=== PATIENT | female | born 1975 | race Caucasian/White ===

== ENCOUNTER 2020-05-08 13:27 | Emergency (ER) | payer OTHER, SELFPAY ==
[2020-05-08] VITALS (8 sets, daily range): BP systolic 119–134; BP diastolic 58–89; PULSE 52–86; RESP 16–24; TEMP 36.6; O2SAT 98–100; BMI 25.8
[2020-05-08 14:14] LABS: Add Manual Diff / Slide Review NO; Basophils Absolute Auto 100 /uL (0-100); Eosinophils Absolute Auto 100 /uL (0-450); Eosinophils Percent Auto 1.4 % (2-4); Hemoglobin 13.9 g/dL (12.0-16.0); Lymphocytes Absolute Auto 1900 /uL (1100-4500); Lymphocytes Percent Auto 31.9 % (25-40); Mean Corpuscular HGB Conc 34.8 % (30-36); Mean Corpuscular Hemoglobin 35.6 PG (26-34); Mean Corpuscular Volume 102.2 fL (80-100); Monocytes Absolute Auto 500 /uL (0-900); Monocytes Percent Auto 8.3 % (3-14); Neutrophils Absolute Auto 3400 /uL (1500-7000); Neutrophils Percent Auto 57.4 % (50-75); Platelet Count 283 X10^3/uL (150-400); Red Blood Cell Count 3.91 X10^6/uL (4.0-5.2); Red Cell Distribution Width 12.7 % (11.6-14.8)
[2020-05-08 14:22] LABS: INR 0.9 (0.9-1.3); Prothrombin Time 10.3 SECONDS (10.1-12.7)
[2020-05-08 14:25] LABS: PTT Partial Thromboplastin Tim 31 SECONDS (26.4-36.2)
[2020-05-08] MEDS: PANTOPRAZOLE 40 MG VIAL IV (14:29)
[2020-05-08] MEDS: ONDANSETRON 4 MG/2 ML INJ IV ×2 (14:29→21:03)
[2020-05-08] MEDS: SODIUM CHLORIDE 0.9% 1,000 ML 1000 ML IV ×4 (14:29→20:00)
[2020-05-08 14:31] LABS: Lactate (Lactic Acid) 2.5 mmol/L (0.7-2.1)
[2020-05-08 14:32] LABS: Alanine Aminotransferase 24 IU/L (<35); Albumin 4.5 g/dL (3.5-5.0); Albumin Globulin Ratio 1.5 (1.0-2.8); Alkaline Phosphatase 81 U/L (38-126); Amylase 97 U/L (30-110); Aspartate Aminotransferase 45 IU/L (14-36); BUN Creatinine Ratio 17.3 (6-22); Bilirubin Total 0.6 mg/dL (0.2-1.3); Blood Urea Nitrogen 9 mg/dL (7-17); Calcium 9.3 mg/dL (8.4-10.2); Carbon Dioxide 25 mmol/L (22-32); Chloride 100 mmol/L (98-107); Estimated Glomerular Filt Rate > 60.0 mL/min (>60); Glucose 109 mg/dL (70-100); HEMOLYSIS 19 (0-50); Lipase 92 U/L (23-300); Potassium 3.4 mmol/L (3.4-5.1); Sodium 135 mmol/L (137-145); Total Protein 7.5 g/dL (6.3-8.2)
[2020-05-08 15:06] LABS: Pregnancy Test Serum,Qual Negative (Negative)
--- NOTE | 2020-05-08 15:10 | DI.CT.S_ITS ---
PROCEDURE: CT ABDOMEN PELVIS W CON INDICATIONS: abd pain, post op gastric bypass TECHNIQUE: After the administration of oral and intravenous contrast, 5 mm thick sections acquired from the diaphragms to the symphysis. 5 mm thick coronal and sagittal reformats were performed. For radiation dose reduction, the following was used: automated exposure control, adjustment of mA and/or kV according to patient size. COMPARISON: [facility], CT, CT ABDOMEN PELVIS WITH CONTRAST, 11/21/2019, 15:10. FINDINGS: Image quality: Diagnostic. ABDOMEN: Lung bases: Lung bases are clear. Heart size is normal. Solid organs: The liver is borderline enlarged at 19.4 cm in craniocaudal dimension. The liver is hypodense when compared to the spleen. The patient has had a prior cholecystectomy without significant biliary dilatation. The spleen, adrenals, and pancreas are within normal limits. Both kidneys are normal in size. There is no hydronephrosis. Peritoneum and bowel: Postsurgical changes of the stomach and small bowel are compatible with a previous gastric bypass procedure. Small bowel loops are nondilated. Air and stool are identified throughout the colon. The appendix is well-visualized and normal. No free fluid or loculated fluid collections appreciated within the abdomen. Nodes and vessels: No retroperitoneal or mesenteric adenopathy. However, multiple small mesenteric lymph nodes are identified. Aorta and inferior vena cava are normal in caliber. Bones: No acute fracture or suspicious osseous lesion is identified. Mild to moderate degenerative changes of the spine are present. PELVIS: Genitourinary: Bladder wall thickness is normal. The uterus and ovaries are not enlarged, but are not adequately characterized on CT. Arcuate morphology of the uterus appears to be present. Tubal ligation is present. Miscellaneous: No inguinal hernias or adenopathy. There may be a trace amount of free fluid within the pelvis, likely physiologic. There is no loculated fluid collection. Bones: No suspicious bony lesions. No acute pelvic fractures are identified. IMPRESSION: 1. No definite acute abnormality within the abdomen or pelvis. 2. No bowel obstruction. 3. Multiple nonspecific subcentimeter mesenteric lymph nodes may be within normal limits. Mesenteritis cannot be completely excluded and clinical correlation is advised. 4. Mild hepatic steatosis is suspected. 5. Postoperative changes related to previous gastric bypass surgery. Dictated by: Hugo Carrington M.D. on 05/08/2020 at 15:24 Approved by: Hugo Carrington M.D. on 05/08/2020 at 15:28
[2020-05-08] MEDS: MORPHINE 4 MG/ML INJ IV (15:37)
[2020-05-08] MEDS: ONDANSETRON 4 MG/2 ML INJ (15:43)
[2020-05-08 16:22] LABS: Reflexed Lactate in 2 Hours Y
[2020-05-08] MEDS: LORazepam 2 MG/ML INJ 1 MG IV ×2 (16:29→18:58)
[2020-05-08] MEDS: MAG HYDROX/ALUMINUM/SIMETH SUS 20 ML, LIDOCAINE VISCOUS 2% 15 ML PO ×2 (17:15→21:03)
[2020-05-08] MEDS: SUCRALFATE 1 GM/10 ML ORAL SUSP PO (17:15)
--- NOTE | 2020-05-08 17:53 | ED.ABDPAIN ---
HPI - Abdominal Pain <[facility] - Last Filed: 05/08/20 21:58> General Chief Complaint: Abdominal Pain Stated Complaint: sharp abd pain, shaking Time Seen by Provider: 05/08/20 14:05 Source: patient Mode of arrival: Wheelchair Limitations: no limitations History of Present Illness HPI narrative: The patient is a 44-year-old female former smoker who presents with a chief complaint of abdominal pain. Pain started this morning. She has history of a gastric bypass surgery, which was a Agnieszka-en-Y done in [place]. She has also had a cholecystectomy in the past. Denies any fever but does complain of anxiety. She has had nausea but no vomiting normal stools last bowel movement yesterday. Denies any dysuria urgency or frequency. She has not had any Protonix. Denies any chest pain or shortness of breath. She denies any cough or congestion. Related Data Previous Rx's Medication Instructions Recorded omeprazole 40 mg PO DAILY #20 cap 05/08/20 ondansetron 4 mg PO Q6H PRN #20 tab 05/08/20 sucralfate [Carafate] 10 ml PO QACHS 10 Days #400 ml 05/08/20 Allergies Allergy/AdvReac Type Severity Reaction Status Date / Time NSAIDS (Non-Steroidal Allergy Verified 05/08/20 13:39 Anti-Inflamma Review of Systems <[facility] - Last Filed: 05/08/20 21:58> Review of Systems Narrative: GENERAL: Denies chills, fatigue, malaise, fever, sweats. HEENT: Denies sinus pain, ear pain, sore throat, difficulty swallowing, dizziness. RESPIRATORY: Denies dyspnea, cough, wheezing, hemoptysis, sputum. CARDIOVASCULAR: Denies chest pain, palpitations, orthopnea, edema, GASTROINTESTINAL: See HPI : Denies dysuria, frequency, incontinence, hematuria, urinary retention. MUSCULOSKELETAL: denies weakness, joint pain, or bony pain SKIN: Denies rash, skin lesions, or other NEUROLOGIC: Denies weakness, headache, numbness, change in speech, confusion, seizures, incoordination. PSYCHIATRIC: No concerning psychosocial issues. 12 point review of systems is negative except for those stated above Patient History <[facility] - Last Filed: 05/08/20 21:58> Surgical History (Updated 05/08/20 @ 21:25 by JANIYA Aldridge) History of cholecystectomy (Acute) History of endometrial ablation (Acute) History of Agnieszka-en-Y gastric bypass (Acute) History of tubal ligation (Acute) Social History Smoking Status: Former smoker Smoking Status: Former smoker alcohol intake frequency: 3 or more drinks per day Alcohol type: wine Substance Use Type: marijuana Exam <JANIYA Aldridge - Last Filed: 05/08/20 21:58> Narrative Exam Narrative: GENERAL: This is a well-nourished, well-developed patient, appears uncomfortable HEAD: Atraumatic. Normocephalic. No temporal or scalp tenderness. EYES: Pupils equal round and reactive. Extraocular motions intact. No scleral icterus. No injection or drainage. ENT: Nose without bleeding, purulent drainage or septal hematoma. Throat without erythema, tonsillar hypertrophy or exudate. Uvula midline. Airway patent. NECK: Trachea midline. No JVD or lymphadenopathy. Supple, nontender, no meningeal signs. CARDIOVASCULAR: Regular rate and rhythm RESPIRATORY: Clear to auscultation. Breath sounds equal bilaterally. No wheezes, rales, or rhonchi. No cough. No increased respiratory effort. No accessory muscle use GASTROINTESTINAL: Abdomen soft, diffusely tender in the epigastric area, nondistended. No hepato-splenomegaly, or palpable masses. No guarding. Active bowel sounds all 4 quadrants EXTREMITIES: No clubbing, cyanosis, or edema. No joint tenderness, effusion, or edema noted. BACK: Nontender without deformity or crepitance. No flank tenderness. NEURO: AOx3. SKIN: No rash or erythema on visible skin Initial Vital Signs Initial Vital Signs: Vital Signs Temperature 97.9 F 05/08/20 13:36 Pulse Rate 74 05/08/20 13:36 Respiratory Rate 24 05/08/20 13:36 Blood Pressure 119/58 L 05/08/20 13:36 Pulse Oximetry 100 05/08/20 13:36 <Bony Landa DO - Last Filed: 05/08/20 22:19> Initial Vital Signs Initial Vital Signs: Vital Signs Temperature 97.9 F 05/08/20 13:36 Pulse Rate 74 05/08/20 13:36 Respiratory Rate 24 05/08/20 13:36 Blood Pressure 119/58 L 05/08/20 13:36 Pulse Oximetry 100 05/08/20 13:36 Scores <JANIYA Aldridge - Last Filed: 05/08/20 21:58> GCS Genoveva coma scale eye opening: Spontaneous [place] coma scale verbal response: Orientated Genoveva coma scale motor response: Obey commands [place] coma scale total score: 15 Course <JANIYA Aldridge - Last Filed: 05/08/20 21:58> Orders Ordered: ED Orders 05/08/20 13:39 EKG-12 Lead Stat 05/08/20 14:05 Amylase Stat Complete Blood Count AUTO DIFF Stat Comprehensive Metabolic Panel Stat Lactate (Lactic Acid) Stat Lipase Stat Partial Thromboplastin Time Stat Test Serum,Qual Stat Prothrombin Time INR Stat 05/08/20 15:10 CT abdomen pelvis w con Stat 05/08/20 20:56 Lactate (Lactic Acid) Stat Discontinued Medications Acetaminophen/Codeine Phosphate (Tylenol #3 Prepack) 1 bottle MISC SEEINSTR ONE Stop: 05/08/20 21:42 Last Admin: 05/08/20 21:56 Dose: 1 bottle Documented by: REJI Al Hydrox/Mg Hydrox/Simethicone 20 ml/ Lidocaine HCl 15 ml 0 ml PO NOW ONE Stop: 05/08/20 16:41 Last Admin: 05/08/20 17:15 Dose: 35 ml Documented by: JOHN PAUL Al Hydrox/Mg Hydrox/Simethicone 20 ml/ Lidocaine HCl 15 ml 0 ml PO NOW ONE Stop: 05/08/20 21:01 Last Admin: 05/08/20 21:03 Dose: 35 ml Documented by: MMCFARL Diphenhydramine HCl (Benadryl) 50 mg IV NOW ONE Stop: 05/08/20 19:04 Last Admin: 05/08/20 20:39 Dose: Not Given Documented by: MMCFARL Diphenhydramine HCl (Benadryl) 25 mg IV NOW ONE Stop: 05/08/20 19:05 Last Admin: 05/08/20 19:32 Dose: 25 mg Documented by: MMCFARL Sodium Chloride (Normal Saline 0.9%) 1,000 mls @ 1,000 mls/hr IV BOLUS ONE Stop: 05/08/20 15:16 Last Infusion: 05/08/20 15:30 Dose: 0 mls/hr Documented by: JOHN PAUL Admin: 05/08/20 14:29 Dose: 1,000 mls/hr Documented by: JOHN PAUL Sodium Chloride (Normal Saline 0.9%) 1,000 mls @ 1,000 mls/hr IV BOLUS ONE Stop: 05/08/20 15:42 Last Infusion: 05/08/20 17:49 Dose: 0 mls/hr Documented by: Admin: 05/08/20 16:29 Dose: 1,000 mls/hr Documented by: JOHN PAUL Sodium Chloride (Normal Saline 0.9%) 1,000 mls @ 1,000 mls/hr IV BOLUS ONE Stop: 05/08/20 19:37 Last Infusion: 05/08/20 20:00 Dose: 0 mls/hr Documented by: Admin: 05/08/20 18:54 Dose: 1,000 mls/hr Documented by: JOHN PAUL Sodium Chloride (Normal Saline 0.9%) 1,000 mls @ 1,000 mls/hr IV BOLUS ONE Stop: 05/08/20 19:38 Last Infusion: 05/08/20 20:57 Dose: 0 mls/hr Documented by: Admin: 05/08/20 20:00 Dose: 1,000 mls/hr Documented by: REJI Thiamine HCl 200 mg/ Sodium (Chloride) 52 mls @ 208 mls/hr IV NOW ONE Stop: 05/08/20 21:44 Last Admin: 05/08/20 21:55 Dose: 208 mls/hr Documented by: REJI Lorazepam (Ativan) 1 mg IV NOW ONE Stop: 05/08/20 16:07 Last Admin: 05/08/20 16:29 Dose: 1 mg Documented by: JOHN PAUL Lorazepam (Ativan) 1 mg IV NOW ONE Stop: 05/08/20 18:39 Last Admin: 05/08/20 18:58 Dose: 1 mg Documented by: JOHN PAUL Morphine Sulfate (Morphine) 4 mg IV NOW ONE Stop: 05/08/20 15:31 Last Admin: 05/08/20 15:37 Dose: 4 mg Documented by: POORNIMA Ondansetron HCl (Zofran) 4 mg IV NOW ONE Stop: 05/08/20 14:18 Last Admin: 05/08/20 14:29 Dose: 4 mg Documented by: JOHN PAUL Ondansetron HCl (Zofran) 4 mg IV NOW ONE Stop: 05/08/20 21:00 Last Admin: 05/08/20 21:03 Dose: 4 mg Documented by: REJI Ondansetron HCl (Zofran Odt Prepack) 1 bottle MISC SEEINSTR ONE Stop: 05/08/20 21:42 Last Admin: 05/08/20 21:56 Dose: 1 bottle Documented by: REJI Pantoprazole Sodium (Protonix) 40 mg IV NOW ONE Stop: 05/08/20 14:18 Last Admin: 05/08/20 14:29 Dose: 40 mg Documented by: JOHN PAUL Sucralfate (Carafate) 1 gm PO NOW ONE Stop: 05/08/20 16:42 Last Admin: 05/08/20 17:15 Dose: 1 gm Documented by: JOHN PAUL Vital Signs Vital signs: Vital Signs - 8 hr 05/08/20 16:10 05/08/20 16:39 05/08/20 18:23 Pulse Rate 57 L 52 L 70 Respiratory Rate 17 18 17 Blood Pressure [Left Arm] 134/81 124/89 123/58 L Pulse Oximetry 100 100 98 05/08/20 19:32 05/08/20 20:30 05/08/20 21:00 Pulse Rate 86 65 70 Respiratory Rate 17 17 Blood Pressure [Left Arm] 126/62 126/63 126/75 Pulse Oximetry 99 100 99 <Bony Landa DO - Last Filed: 05/08/20 22:19> Orders Ordered: ED Orders 05/08/20 13:39 EKG-12 Lead Stat 05/08/20 14:05 Amylase Stat Complete Blood Count AUTO DIFF Stat Comprehensive Metabolic Panel Stat Lactate (Lactic Acid) Stat Lipase Stat Partial Thromboplastin Time Stat Test Serum,Qual Stat Prothrombin Time INR Stat 05/08/20 15:10 CT abdomen pelvis w con Stat 05/08/20 20:56 Lactate (Lactic Acid) Stat Discontinued Medications Acetaminophen/Codeine Phosphate (Tylenol #3 Prepack) 1 bottle MISC SEEINSTR ONE Stop: 05/08/20 21:42 Last Admin: 05/08/20 21:56 Dose: 1 bottle Documented by: MMCFARL Al Hydrox/Mg Hydrox/Simethicone 20 ml/ Lidocaine HCl 15 ml 0 ml PO NOW ONE Stop: 05/08/20 16:41 Last Admin: 05/08/20 17:15 Dose: 35 ml Documented by: JOHN PAUL Blanc Hydrox/Mg Hydrox/Simethicone 20 ml/ Lidocaine HCl 15 ml 0 ml PO NOW ONE Stop: 05/08/20 21:01 Last Admin: 05/08/20 21:03 Dose: 35 ml Documented by: REJI Diphenhydramine HCl (Benadryl) 50 mg IV NOW ONE Stop: 05/08/20 19:04 Last Admin: 05/08/20 20:39 Dose: Not Given Documented by: RAMÍREZFAROllie Diphenhydramine HCl (Benadryl) 25 mg IV NOW ONE Stop: 05/08/20 19:05 Last Admin: 05/08/20 19:32 Dose: 25 mg Documented by: REJI Sodium Chloride (Normal Saline 0.9%) 1,000 mls @ 1,000 mls/hr IV BOLUS ONE Stop: 05/08/20 15:16 Last Infusion: 05/08/20 15:30 Dose: 0 mls/hr Documented by: JOHN PAUL Admin: 05/08/20 14:29 Dose: 1,000 mls/hr Documented by: JOHN PAUL Sodium Chloride (Normal Saline 0.9%) 1,000 mls @ 1,000 mls/hr IV BOLUS ONE Stop: 05/08/20 15:42 Last Infusion: 05/08/20 17:49 Dose: 0 mls/hr Documented by: Admin: 05/08/20 16:29 Dose: 1,000 mls/hr Documented by: JOHN PAUL Sodium Chloride (Normal Saline 0.9%) 1,000 mls @ 1,000 mls/hr IV BOLUS ONE Stop: 05/08/20 19:37 Last Infusion: 05/08/20 20:00 Dose: 0 mls/hr Documented by: Admin: 05/08/20 18:54 Dose: 1,000 mls/hr Documented by: JOHN PAUL Sodium Chloride (Normal Saline 0.9%) 1,000 mls @ 1,000 mls/hr IV BOLUS ONE Stop: 05/08/20 19:38 Last Infusion: 05/08/20 20:57 Dose: 0 mls/hr Documented by: Admin: 05/08/20 20:00 Dose: 1,000 mls/hr Documented by: REJI Thiamine HCl 200 mg/ Sodium (Chloride) 52 mls @ 208 mls/hr IV NOW ONE Stop: 05/08/20 21:44 Last Admin: 05/08/20 21:55 Dose: 208 mls/hr Documented by: REJI Lorazepam (Ativan) 1 mg IV NOW ONE Stop: 05/08/20 16:07 Last Admin: 05/08/20 16:29 Dose: 1 mg Documented by: JOHN PAUL Lorazepam (Ativan) 1 mg IV NOW ONE Stop: 05/08/20 18:39 Last Admin: 05/08/20 18:58 Dose: 1 mg Documented by: JOHN PAUL Morphine Sulfate (Morphine) 4 mg IV NOW ONE Stop: 05/08/20 15:31 Last Admin: 05/08/20 15:37 Dose: 4 mg Documented by: POORNIMA Ondansetron HCl (Zofran) 4 mg IV NOW ONE Stop: 05/08/20 14:18 Last Admin: 05/08/20 14:29 Dose: 4 mg Documented by: JOHN PAUL Ondansetron HCl (Zofran) 4 mg IV NOW ONE Stop: 05/08/20 21:00 Last Admin: 05/08/20 21:03 Dose: 4 mg Documented by: REJI Ondansetron HCl (Zofran Odt Prepack) 1 bottle [facility] SEEINSTR ONE Stop: 05/08/20 21:42 Last Admin: 05/08/20 21:56 Dose: 1 bottle Documented by: REJI Pantoprazole Sodium (Protonix) 40 mg IV NOW ONE Stop: 05/08/20 14:18 Last Admin: 05/08/20 14:29 Dose: 40 mg Documented by: JOHN PAUL Sucralfate (Carafate) 1 gm PO NOW ONE Stop: 05/08/20 16:42 Last Admin: 05/08/20 17:15 Dose: 1 gm Documented by: JOHN PAUL Vital Signs Vital signs: Vital Signs - 8 hr 05/08/20 16:10 05/08/20 16:39 05/08/20 18:23 Pulse Rate 57 L 52 L 70 Respiratory Rate 17 18 17 Blood Pressure [Left Arm] 134/81 124/89 123/58 L Pulse Oximetry 100 100 98 05/08/20 19:32 05/08/20 20:30 05/08/20 21:00 Pulse Rate 86 65 70 Respiratory Rate 17 17 Blood Pressure [Left Arm] 126/62 126/63 126/75 Pulse Oximetry 99 100 99 MDM - Abdominal Pain <Marcela Carcamomer, [facility] - Last Filed: 05/08/20 21:58> Lab Data Result diagrams: 05/08/20 14:05 05/08/20 14:05 Labs: Lab Results 05/08/20 05/08/20 05/08/20 Range/Units 14:05 14:05 14:05 WBC 6.0 (4.5-11.0) X10^3/uL RBC 3.91 L (4.0-5.2) X10^6/uL Hgb 13.9 (12.0-16.0) g/dL Hct 40.0 (36-46) % MCV 102.2 H (80-100) fL MCH 35.6 H (26-34) PG MCHC 34.8 (30-36) % RDW 12.7 (11.6-14.8) % Plt Count 283 (150-400) X10^3/uL Neut % (Auto) 57.4 (50-75) % Lymph % (Auto) 31.9 (25-40) % [place] % (Auto) 8.3 (3-14) % Eos % (Auto) 1.4 L (2-4) % Baso % (Auto) 1.0 (0-2) % Neut # (Auto) 3400 (3058-4504) /uL Lymph # (Auto) 1900 (2913-6467) /uL [place] # (Auto) 500 (0-900) /uL Eos # (Auto) 100 (0-450) /uL Baso # (Auto) 100 (0-100) /uL PT 10.3 (10.1-12.7) SECONDS INR 0.9 (0.9-1.3) APTT 31 (26.4-36.2) SECONDS Sodium 135 L (137-145) mmol/L Potassium 3.4 (3.4-5.1) mmol/L Chloride 100 (98-107) mmol/L Carbon Dioxide 25 (22-32) mmol/L BUN 9 (7-17) mg/dL Creatinine 0.52 (0.52-1.04) mg/dL Estimated GFR > 60.0 (>60) mL/min BUN/Creatinine Ratio 17.3 (6-22) Glucose 109 H (70-100) mg/dL Lactate (0.7-2.1) mmol/L Calcium 9.3 (8.4-10.2) mg/dL Total Bilirubin 0.6 (0.2-1.3) mg/dL AST 45 H (14-36) IU/L ALT 24 (<35) IU/L Alkaline Phosphatase 81 (38-126) U/L Total Protein 7.5 (6.3-8.2) g/dL Albumin 4.5 (3.5-5.0) g/dL Globulin 3.0 (1.7-4.1) g/dL Albumin/Globulin Ratio 1.5 (1.0-2.8) Amylase (30-110) U/L Lipase 92 (23-300) U/L Serum , Qual (Negative) 05/08/20 05/08/20 05/08/20 Range/Units 14:05 14:05 14:05 WBC (4.5-11.0) X10^3/uL RBC (4.0-5.2) X10^6/uL Hgb (12.0-16.0) g/dL Hct (36-46) % MCV (80-100) fL MCH (26-34) PG MCHC (30-36) % RDW (11.6-14.8) % Plt Count (150-400) X10^3/uL Neut % (Auto) (50-75) % Lymph % (Auto) (25-40) % [place] % (Auto) (3-14) % Eos % (Auto) (2-4) % Baso % (Auto) (0-2) % Neut # (Auto) (6700-6363) /uL Lymph # (Auto) (3255-9927) /uL [place] # (Auto) (0-900) /uL Eos # (Auto) (0-450) /uL Baso # (Auto) (0-100) /uL PT (10.1-12.7) SECONDS INR (0.9-1.3) APTT (26.4-36.2) SECONDS Sodium (137-145) mmol/L Potassium (3.4-5.1) mmol/L Chloride (98-107) mmol/L Carbon Dioxide (22-32) mmol/L BUN (7-17) mg/dL Creatinine (0.52-1.04) mg/dL Estimated GFR (>60) mL/min BUN/Creatinine Ratio (6-22) Glucose (70-100) mg/dL Lactate 2.5 H (0.7-2.1) mmol/L Calcium (8.4-10.2) mg/dL Total Bilirubin (0.2-1.3) mg/dL AST (14-36) IU/L ALT (<35) IU/L Alkaline Phosphatase (38-126) U/L Total Protein (6.3-8.2) g/dL Albumin (3.5-5.0) g/dL Globulin (1.7-4.1) g/dL Albumin/Globulin Ratio (1.0-2.8) Amylase 97 (30-110) U/L Lipase (23-300) U/L Serum , Qual Negative (Negative) 05/08/20 05/08/20 Range/Units 17:44 20:56 WBC (4.5-11.0) X10^3/uL RBC (4.0-5.2) X10^6/uL Hgb (12.0-16.0) g/dL Hct (36-46) % MCV (80-100) fL MCH (26-34) PG MCHC (30-36) % RDW (11.6-14.8) % Plt Count (150-400) X10^3/uL Neut % (Auto) (50-75) % Lymph % (Auto) (25-40) % [place] % (Auto) (3-14) % Eos % (Auto) (2-4) % Baso % (Auto) (0-2) % Neut # (Auto) (2482-0490) /uL Lymph # (Auto) (4531-6371) /uL [place] # (Auto) (0-900) /uL Eos # (Auto) (0-450) /uL Baso # (Auto) (0-100) /uL PT (10.1-12.7) SECONDS INR (0.9-1.3) APTT (26.4-36.2) SECONDS Sodium (137-145) mmol/L Potassium (3.4-5.1) mmol/L Chloride (98-107) mmol/L Carbon Dioxide (22-32) mmol/L BUN (7-17) mg/dL Creatinine (0.52-1.04) mg/dL Estimated GFR (>60) mL/min BUN/Creatinine Ratio (6-22) Glucose (70-100) mg/dL Lactate 2.8 H 2.6 H (0.7-2.1) mmol/L Calcium (8.4-10.2) mg/dL Total Bilirubin (0.2-1.3) mg/dL AST (14-36) IU/L ALT (<35) IU/L Alkaline Phosphatase (38-126) U/L Total Protein (6.3-8.2) g/dL Albumin (3.5-5.0) g/dL Globulin (1.7-4.1) g/dL Albumin/Globulin Ratio (1.0-2.8) Amylase (30-110) U/L Lipase (23-300) U/L Serum , Qual (Negative) Point of care testing: Point of Care Testing Test Results Negative Urine Dip Bedside Urine Glucose Negative Bedside Urine Bilirubin ++ 2 Bedside Urine Ketone +++ 80 Urine Specific [place] 1.010 Bedside Urine Occult Blood - Negative Bedside Urine pH 8.5 Bedside Urine Protein + 30 Bedside Urine Urobilinogen +/- 1mg Bedside Urine Nitrite - Negative Bedside Urine Leukocytes - Negative Esterase Imaging Data CT scan - abdomen/pelvis: Radiologist's Impression: Count includes the [facility] [place] [id number] Scan Report Signed Patient: Rita Hernandez [facility]#: [id number] : 1975Acct:[id number] Age/Sex: 44 / FDate of Service: 05/08/20 Loc: ED Accession Number: [id number] Procedure: CT abdomen pelvis w con Ordering Provider: Marcela Shelley [facility]- PROCEDURE: CT ABDOMEN PELVIS W CON INDICATIONS: abd pain, post op gastric bypass TECHNIQUE: After the administration of oral and intravenous contrast, 5 mm thick sections acquired from the diaphragms to the symphysis. 5 mm thick coronal and sagittal reformats were performed. For radiation dose reduction, the following was used: automated exposure control, adjustment of mA and/or kV according to patient size. COMPARISON: [facility], CT, CT ABDOMEN PELVIS WITH CONTRAST, 11/21/2019, 15:10. FINDINGS: Image quality: Diagnostic. ABDOMEN: Lung bases: Lung bases are clear. Heart size is normal. Solid organs: The liver is borderline enlarged at 19.4 cm in craniocaudal dimension. The liver is hypodense when compared to the spleen. The patient has had a prior cholecystectomy without significant biliary dilatation. The spleen, adrenals, and pancreas are within normal limits. Both kidneys are normal in size. There is no hydronephrosis. Peritoneum and bowel: Postsurgical changes of the stomach and small bowel are compatible with a previous gastric bypass procedure. Small bowel loops are nondilated. Air and stool are identified throughout the colon. The appendix is well-visualized and normal. No free fluid or loculated fluid collections appreciated within the abdomen. Nodes and vessels: No retroperitoneal or mesenteric adenopathy. However, multiple small mesenteric lymph nodes are identified. Aorta and inferior vena cava are normal in caliber. Bones: No acute fracture or suspicious osseous lesion is identified. Mild to moderate degenerative changes of the spine are present. PELVIS: Genitourinary: Bladder wall thickness is normal. The uterus and ovaries are not enlarged, but are not adequately characterized on CT. Arcuate morphology of the uterus appears to be present. Tubal ligation is present. Miscellaneous: No inguinal hernias or adenopathy. There may be a trace amount of free fluid within the pelvis, likely physiologic. There is no loculated fluid collection. Bones: No suspicious bony lesions. No acute pelvic fractures are identified. IMPRESSION: 1. No definite acute abnormality within the abdomen or pelvis. 2. No bowel obstruction. 3. Multiple nonspecific subcentimeter mesenteric lymph nodes may be within normal limits. Mesenteritis cannot be completely excluded and clinical correlation is advised. 4. Mild hepatic steatosis is suspected. 5. Postoperative changes related to previous gastric bypass surgery. Dictated by: Hugo Carrington M.D. on 05/08/2020 at 15:24 Approved by: Hugo Carrington M.D. on 05/08/2020 at 15:28 ECG Data Attestation: I personally reviewed and interpreted this ECG as follows: Interpretation: Sinus rhythm. Ventricular rate 76. P.r. interval 148. QRS 72 MDM Narrative Medical decision making narrative: The patient is a 44-year-old female with history of cholecystectomy as well as Agnieszka-en-Y gastric bypass who presents with a chief complaint of epigastric pain, nausea and vomiting. She presents hyperventilating, incredibly anxious and shaking. However she is hemodynamically stable, normotensive, afebrile. She has no leukocytosis on her labs, does have an initial lactate of 2.5. She was given IV fluids, Zofran, morphine. Unfortunately the morphine made her more anxious and shaky. Thus she was given Ativan. Her CT scan has no acute findings though raises the possibility of mesenteritis. Her repeat lactate was 2.8 and her mucous membranes remain dry. I spoke with Dr Santos and the patient was given more IV fluids and another dose of Ativan. She received 2 more L of fluid, and repeat lactate was 2.6. However the patient looks and appears well, is taking p.o. fluids, is afebrile in the emergency department. Dr. Edwards was paged for surgical consultation discussed repeat lactates. As per Dr. Edwards, patient would not gain anything at this point from coming in observation status any recommends very close follow-up with her PCP as well as coming back to the emergency department if she gets worse. Patient was also given dose of IV thiamine as per Dr Edwards's instructions. CO2 on labs is 25, patient is not acidotic overall labs are within normal limits. Overall patient feels much improved throughout her stay in the emergency department, is able to tolerate p.o. fluids well, remains normotensive not tachycardic and afebrile. On re-evaluation at 9:30 p.m., patient has no guarding and no acute abdomen. I discussed at length the importance of follow-up with primary care provider in the next day or 2 in gave her work note accordingly. [facility], Protonix, carafate. Patient has no questions or concerns upon discharge and states understanding of return precautions as well as follow-up care. <Bony Landa, - Last Filed: 05/08/20 22:19> Lab Data Labs: Lab Results 05/08/20 05/08/20 05/08/20 Range/Units 14:05 14:05 14:05 WBC 6.0 (4.5-11.0) X10^3/uL RBC 3.91 L (4.0-5.2) X10^6/uL Hgb 13.9 (12.0-16.0) g/dL Hct 40.0 (36-46) % MCV 102.2 H (80-100) fL MCH 35.6 H (26-34) PG MCHC 34.8 (30-36) % RDW 12.7 (11.6-14.8) % Plt Count 283 (150-400) X10^3/uL Neut % (Auto) 57.4 (50-75) % Lymph % (Auto) 31.9 (25-40) % [place] % (Auto) 8.3 (3-14) % Eos % (Auto) 1.4 L (2-4) % Baso % (Auto) 1.0 (0-2) % Neut # (Auto) 3400 (8998-2265) /uL Lymph # (Auto) 1900 (3763-8483) /uL [place] # (Auto) 500 (0-900) /uL Eos # (Auto) 100 (0-450) /uL Baso # (Auto) 100 (0-100) /uL PT 10.3 (10.1-12.7) SECONDS INR 0.9 (0.9-1.3) APTT 31 (26.4-36.2) SECONDS Sodium 135 L (137-145) mmol/L Potassium 3.4 (3.4-5.1) mmol/L Chloride 100 (98-107) mmol/L Carbon Dioxide 25 (22-32) mmol/L BUN 9 (7-17) mg/dL Creatinine 0.52 (0.52-1.04) mg/dL Estimated GFR > 60.0 (>60) mL/min BUN/Creatinine Ratio 17.3 (6-22) Glucose 109 H (70-100) mg/dL Lactate (0.7-2.1) mmol/L Calcium 9.3 (8.4-10.2) mg/dL Total Bilirubin 0.6 (0.2-1.3) mg/dL AST 45 H (14-36) IU/L ALT 24 (<35) IU/L Alkaline Phosphatase 81 (38-126) U/L Total Protein 7.5 (6.3-8.2) g/dL Albumin 4.5 (3.5-5.0) g/dL Globulin 3.0 (1.7-4.1) g/dL Albumin/Globulin Ratio 1.5 (1.0-2.8) Amylase (30-110) U/L Lipase 92 (23-300) U/L Serum , Qual (Negative) 05/08/20 05/08/20 05/08/20 Range/Units 14:05 14:05 14:05 WBC (4.5-11.0) X10^3/uL RBC (4.0-5.2) X10^6/uL Hgb (12.0-16.0) g/dL Hct (36-46) % MCV (80-100) fL MCH (26-34) PG MCHC (30-36) % RDW (11.6-14.8) % Plt Count (150-400) X10^3/uL Neut % (Auto) (50-75) % Lymph % (Auto) (25-40) % [place] % (Auto) (3-14) % Eos % (Auto) (2-4) % Baso % (Auto) (0-2) % Neut # (Auto) (1212-2941) /uL Lymph # (Auto) (1139-9542) /uL [place] # (Auto) (0-900) /uL Eos # (Auto) (0-450) /uL Baso # (Auto) (0-100) /uL PT (10.1-12.7) SECONDS INR (0.9-1.3) APTT (26.4-36.2) SECONDS Sodium (137-145) mmol/L Potassium (3.4-5.1) mmol/L Chloride (98-107) mmol/L Carbon Dioxide (22-32) mmol/L BUN (7-17) mg/dL Creatinine (0.52-1.04) mg/dL Estimated GFR (>60) mL/min BUN/Creatinine Ratio (6-22) Glucose (70-100) mg/dL Lactate 2.5 H (0.7-2.1) mmol/L Calcium (8.4-10.2) mg/dL Total Bilirubin (0.2-1.3) mg/dL AST (14-36) IU/L ALT (<35) IU/L Alkaline Phosphatase (38-126) U/L Total Protein (6.3-8.2) g/dL Albumin (3.5-5.0) g/dL Globulin (1.7-4.1) g/dL Albumin/Globulin Ratio (1.0-2.8) Amylase 97 (30-110) U/L Lipase (23-300) U/L Serum , Qual Negative (Negative) 05/08/20 05/08/20 Range/Units 17:44 20:56 WBC (4.5-11.0) X10^3/uL RBC (4.0-5.2) X10^6/uL Hgb (12.0-16.0) g/dL Hct (36-46) % MCV (80-100) fL MCH (26-34) PG MCHC (30-36) % RDW (11.6-14.8) % Plt Count (150-400) X10^3/uL Neut % (Auto) (50-75) % Lymph % (Auto) (25-40) % [place] % (Auto) (3-14) % Eos % (Auto) (2-4) % Baso % (Auto) (0-2) % Neut # (Auto) (5928-0052) /uL Lymph # (Auto) (5439-6980) /uL [place] # (Auto) (0-900) /uL Eos # (Auto) (0-450) /uL Baso # (Auto) (0-100) /uL PT (10.1-12.7) SECONDS INR (0.9-1.3) APTT (26.4-36.2) SECONDS Sodium (137-145) mmol/L Potassium (3.4-5.1) mmol/L Chloride (98-107) mmol/L Carbon Dioxide (22-32) mmol/L BUN (7-17) mg/dL Creatinine (0.52-1.04) mg/dL Estimated GFR (>60) mL/min BUN/Creatinine Ratio (6-22) Glucose (70-100) mg/dL Lactate 2.8 H 2.6 H (0.7-2.1) mmol/L Calcium (8.4-10.2) mg/dL Total Bilirubin (0.2-1.3) mg/dL AST (14-36) IU/L ALT (<35) IU/L Alkaline Phosphatase (38-126) U/L Total Protein (6.3-8.2) g/dL Albumin (3.5-5.0) g/dL Globulin (1.7-4.1) g/dL Albumin/Globulin Ratio (1.0-2.8) Amylase (30-110) U/L Lipase (23-300) U/L Serum , Qual (Negative) Point of care testing: Point of Care Testing Test Results Negative Urine Dip Bedside Urine Glucose Negative Bedside Urine Bilirubin ++ 2 Bedside Urine Ketone +++ 80 Urine Specific [place] 1.010 Bedside Urine Occult Blood - Negative Bedside Urine pH 8.5 Bedside Urine Protein + 30 Bedside Urine Urobilinogen +/- 1mg Bedside Urine Nitrite - Negative Bedside Urine Leukocytes - Negative Esterase Discharge Plan Departure Patient Disposition: Home Clinical Impression: Epigastric abdominal pain Instructions: DI for Abdominal Pain-Adult, DI for Epigastric Pain Activity Restrictions/Additional Instructions: Thank you for trusting us with your care today. Your lab work came back mostly normal today, your CT scan has no acute findings. I sent 3 [facility] to [email or web address] I spoke with the surgeon on-call, who recommends that your vitamin levels be checked. Please be extra cautious regarding your diet, avoid alcohol, acidic foods etc. Please follow-up with primary care provider in the next few days. Please come back to emergency department for any acute concerns Prescriptions: New omeprazole 40 mg capsule,delayed release(DR/EC) 40 mg PO DAILY Qty: 20 RF: 0 sucralfate [Carafate] 100 mg/mL suspension 10 ml PO QACHS 10 Days Qty: 400 RF: 0 ondansetron 4 mg tablet,disintegrating 4 mg PO Q6H PRN (Reason: nausea and vomiting) Qty: 20 RF: 0 Referrals: Julien Nance FNP-C [Non-Staff] - Stand Alone Forms: Work Release Note <Bony Landa DO - Last Filed: 05/08/20 22:19> Cosign ED Attending Cosignature Attestation: Dr Landa Co-Sign Statement: I was available for consultation during this patient's emergency department visit. This chart is signed by myself for administrative purposes only. I did not have direct contact with this patient during this visit. They were seen independently by the APC.
[2020-05-08 18:06] LABS: Lactate 2HR (Lactic Acid Rflx) 2.8 mmol/L (0.7-2.1)
[2020-05-08] MEDS: diphenhydrAMINE 50 MG/ML VIAL 25 MG IV (19:32)
[2020-05-08 21:14] LABS: Lactate (Lactic Acid) 2.6 mmol/L (0.7-2.1)
[2020-05-08] MEDS: THIAMINE 200 MG in SODIUM CHLORIDE 0.9% 50 ML 208 ML IV (21:55)
[2020-05-08] MEDS: CODEINE/APAP 30/300 PREPACK 1 BOTTLE MISC (21:56)
[2020-05-08] MEDS: ONDANSETRON 4 MG ODT PREPACK 1 BOTTLE MISC (21:56)
[2020-05-08 22:59] LABS: Reflexed Lactate in 2 Hours Y
== END 2020-05-08 22:15 | disposition home or self-care (01) ==
PROVIDERS: Emergency Medicine; Emergency Provider Nurse Practitioner Family
DX: R10.13 Epigastric pain (principal); R06.4 Hyperventilation; F41.9 Anxiety disorder, unspecified; R11.2 Nausea with vomiting, unspecified; Z98.84 Bariatric surgery status
CPT/HCPCS: 36415; 74177; 80053; 81003; 81025; 82150; 83605; 83690; 84703; 85025; 85610; 85730; 93005; 96361; 96374; 96375; 96376; 99284; 99285; C9113; J1200; J2060; J2270; J2405; Q9967

== ENCOUNTER 2020-05-10 01:28 | Inpatient (IN) | payer OTHER, SELFPAY ==
[2020-05-10] VITALS (25 sets, daily range): BP systolic 87–156; BP diastolic 54–92; PULSE 59–102; RESP 10–20; TEMP 36.2–37.5; O2SAT 93–99; BMI 26.6
--- NOTE | 2020-05-10 01:51 | DI.CT.S_ITS ---
PROCEDURE: CT ABDOMEN PELVIS W CON INDICATIONS: Generalized abdominal pain, history of gastric bypass TECHNIQUE: After the administration of intravenous contrast, 5 mm thick sections acquired from the diaphragm to the symphysis. 5 mm coronal and sagittal reformats were acquired. For radiation dose reduction, the following was used: automated exposure control, adjustment of mA and/or kV according to patient size. COMPARISON: [facility], CT, CT ABDOMEN PELVIS W CON, 05/08/2020, 15:45. FINDINGS: Image quality: Excellent. ABDOMEN: Lung bases: Lung bases are clear. Heart size is normal. Solid organs: Liver is normal in size and enhancement, but there now is mild periportal edema related to increased mesenteric edema and increased free fluid within the peritoneal space. No free air is seen. Gallbladder has been surgically resected. Biliary system is non dilated. Pancreas enhances normally. Spleen is normal in size and enhancement. No adrenal nodules. Kidneys demonstrate normal size and enhancement, without hydronephrosis. Peritoneum and bowel: Colonic bowel loops demonstrate normal wall thickness and caliber but small bowel loops appear mildly edematous through the mid abdomen, in the areas associated with mesenteric edema that is increased. There is a rotation of the mesenteric vessels at the midabdomen, and what appears to be a potential internal hernia crowding the mesenteric vasculature centrally. Note is made of post surgical clips/enteric staple lines consistent with reported gastric bypass surgery. Nodes and vessels: No retroperitoneal or mesenteric adenopathy by size criteria. Aorta and inferior vena cava are normal in size. Note is made of reduced caliber of the superior mesenteric vein associated with the area of what appears to be mesenteric volvulus/internal herniation. Miscellaneous: No ventral hernias. PELVIS: Genitourinary: Bladder wall thickness is normal. Miscellaneous: No inguinal hernias or adenopathy. Free fluid without free air is seen within the lower abdomen/pelvis. Bones: No suspicious bony lesions. No vertebral body compression fractures. 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 Free fluid has increased over the prior 3 days, within the peritoneal space. Mesenteric vein blood flow appears prominently reduced in the area of apparent volvulus/internal hernia and venous stasis associated with the restriction of antegrade flow through the mesenteric veins is the likely cause for these findings. Surgical consultation is anticipated. Postsurgical staple lines are consistent with the clinical history of gastric bypass surgery in the past. Note: These findings are concordant with the preliminary interpretation. Dictated by: Xiang Ribera M.D. on 05/10/2020 at 11:02 Approved by: Xiang Ribera M.D. on 05/10/2020 at 11:10
--- NOTE | 2020-05-10 01:52 | ED.GENADULT ---
HPI - General Adult General Chief complaint: Abdominal Pain Stated complaint: severe stomach pain since yesterday Time Seen by Provider: 05/10/20 01:31 Source: patient Mode of arrival: Wheelchair Limitations: no limitations History of Present Illness HPI narrative: 44-year-old female. Approximately 2 years ago underwent a Agnieszka-en-Y gastric bypass in [place]. Has had minimal follow-up since then. Does not have a primary provider in this area. Was seen here in the emergency department approximately 36 hours ago for abdominal pain. Had labs drawn. Initially had a slightly elevated lactate which did not improve with fluids however the patient's symptoms improved. Had a normal white blood cell count. Had a CT scan of her abdomen which showed no acute pathology. General surgery was consulted and decision was made to discharge the patient home with good return precautions. Patient returns stating that her abdominal pain has continued in potentially worsened and is now moving to the right side of her abdomen. This having nausea and some vomiting. No change of bowel habits. Related Data Home Medications Medication Instructions Recorded Confirmed buspirone 10 mg PO DAILY 05/10/20 05/10/20 Previous Rx's Medication Instructions Recorded omeprazole 40 mg PO DAILY #20 cap 05/08/20 ondansetron 4 mg PO Q6H PRN #20 tab 05/08/20 sucralfate [Carafate] 10 ml PO QACHS 10 Days #400 ml 05/08/20 Allergies Allergy/AdvReac Type Severity Reaction Status Date / Time NSAIDS (Non-Steroidal Allergy Verified 05/08/20 13:39 Anti-Inflamma Review of Systems Constitutional Constitutional: Denies fatigue, Denies fever(s) and Denies headache(s) ENT Ears, Nose, Mouth, and Throat: Denies headache(s) Cardiovascular Cardiovascular: Denies chest pain and Denies dyspnea Respiratory Respiratory: Denies cough and Denies dyspnea Gastrointestinal Gastrointestinal: Reports abdominal pain, Denies change in bowel habits, Reports cramping, Reports nausea and Reports hematemesis Genitourinary Genitourinary: Denies dysuria Genitourinary: Denies dysuria and Denies vaginal discharge Musculoskeletal Musculoskeletal: Denies arthralgias and Denies myalgias Integumentary/Breasts Skin/Breast: Denies rash Neurologic Neurologic: Denies behavioral changes and Denies headache(s) Psychiatric Psychiatric: Reports anxiety and Denies behavioral changes Endocrine Endocrine: Denies fatigue Hematologic/Lymphatic Hematologic/Lymphatic: Denies easy bleeding and Denies easy bruising Allergic/Immunologic Allergic/Immunologic: Denies urticaria Patient History Medical History Epigastric abdominal pain (Inactive) Surgical History History of cholecystectomy (Acute) History of endometrial ablation (Acute) History of Agnieszka-en-Y gastric bypass (Acute) History of tubal ligation (Acute) Social History Smoking Status: Former smoker Smoking Status: Former smoker alcohol intake frequency: 3 or more drinks per day Alcohol type: wine Substance Use Type: marijuana Exam Initial Vital Signs Initial Vital Signs: Vital Signs Temperature 98.9 F 05/10/20 01:35 Pulse Rate 62 05/10/20 01:35 Respiratory Rate 20 05/10/20 01:35 Blood Pressure 156/82 H 05/10/20 01:35 Pulse Oximetry 98 05/10/20 01:35 Const General: cooperative, comfortable and well developed Limitations: mental status not altered HENNH Head: normal to inspection and normocephalic Eyes General: appearance normal, both eyes and all related structures Resp Effort & Inspection: normal respiratory effort Auscultation: clear to auscultation bilaterally Cardio Rate: regular rate Rhythm: regular rhythm GI Inspection: non-distended Palpation: soft, No firm, No guarding and tender (Epigastric right-sided abdomen without guarding) Back/Spine/Pelvis Back: No CVA tenderness Skin Lesions: no lesions Rashes: no rashes Neuro General: patient alert, patient awake and patient oriented x3 Cognition: normal cognition Speech: speech normal Gait: normal gait Sensory Exam: no sensory deficits noted Extrem General: normal to inspection and capillary refill normal Psych Appearance: grossly normal and well kempt Scores GCS [place] coma scale eye opening: Spontaneous [place] coma scale verbal response: Orientated Genoveva coma scale motor response: Obey commands [place] coma scale total score: 15 Course Orders Ordered: ED Orders 05/10/20 01:40 Complete Blood Count AUTO DIFF Stat Comprehensive Metabolic Panel Stat Lactate (Lactic Acid) Stat Lipase Stat Procalcitonin Stat 05/10/20 01:51 CT abdomen pelvis w con Stat 05/10/20 04:55 Consult to General Surgery Stat 05/10/20 04:57 Ictotest Urine Stat Test Urine Stat Urine Culture Stat Urine Microscopic Stat Sodium Chloride (Normal Saline 0.9%) 1,000 mls @ 125 mls/hr IV CONT ALFREDO Last Admin: 05/10/20 04:13 Dose: 125 mls/hr Documented by: REJI Discontinued Medications Hydromorphone HCl (Dilaudid) 0.5 mg IV NOW ONE Stop: 05/10/20 02:11 Last Admin: 05/10/20 02:16 Dose: 0.5 mg Documented by: LING Sodium Chloride (Normal Saline 0.9%) 1,000 mls @ 125 mls/hr IV CONT ALFREDO Last Admin: 05/10/20 04:14 Dose: Not Given Documented by: REJI Sodium Chloride (Normal Saline 0.9%) 1,000 mls @ 1,000 mls/hr IV BOLUS ONE Stop: 05/10/20 02:52 Last Infusion: 05/10/20 02:57 Dose: 0 mls/hr Documented by: Admin: 05/10/20 01:58 Dose: 1,000 mls/hr Documented by: REJI Lorazepam (Ativan) 1 mg IV NOW ONE Stop: 05/10/20 01:52 Last Admin: 05/10/20 01:58 Dose: 1 mg Documented by: REJI Ondansetron HCl (Zofran) 4 mg IV NOW ONE Stop: 05/10/20 01:52 Last Admin: 05/10/20 01:58 Dose: 4 mg Documented by: REJI Ondansetron HCl (Zofran) 4 mg IV NOW ONE Stop: 05/10/20 05:02 Last Admin: 05/10/20 05:05 Dose: 4 mg Documented by: REJI Vital Signs Vital signs: Vital Signs - 8 hr 05/10/20 01:35 05/10/20 02:00 05/10/20 02:19 Temperature 98.9 F Pulse Rate 62 71 72 Respiratory Rate 20 14 16 Blood Pressure 156/82 H Blood Pressure [Left Arm] 140/90 Blood Pressure [Right Arm] 143/92 H Pulse Oximetry 98 94 93 05/10/20 02:48 05/10/20 03:20 06/25/20 04:20 Temperature Pulse Rate 72 74 64 Respiratory Rate 16 16 18 Blood Pressure Blood Pressure [Left Arm] 135/71 130/66 Blood Pressure [Right Arm] 141/74 H Pulse Oximetry 94 94 95 Medical Decision Making Medical Records Medical records reviewed: Yes I reviewed the patient's medical records. Lab Data Lab results reviewed: Yes I reviewed the patient's lab results. Result diagrams: 05/10/20 01:40 05/10/20 01:40 Labs: Lab Results 05/10/20 05/10/20 05/10/20 Range/Units 01:40 01:40 01:40 WBC 6.8 (4.5-11.0) X10^3/uL RBC 3.53 L (4.0-5.2) X10^6/uL Hgb 12.6 (12.0-16.0) g/dL Hct 36.2 (36-46) % MCV 102.5 H (80-100) fL MCH 35.7 H (26-34) PG MCHC 34.9 (30-36) % RDW 12.5 (11.6-14.8) % Plt Count 230 (150-400) X10^3/uL Neut % (Auto) 62.0 (50-75) % Lymph % (Auto) 26.5 (25-40) % Steele % (Auto) 9.3 (3-14) % Eos % (Auto) 1.6 L (2-4) % Baso % (Auto) 0.6 (0-2) % Neut # (Auto) 4200 (1894-3603) /uL Lymph # (Auto) 1800 (3110-0471) /uL [place] # (Auto) 600 (0-900) /uL Eos # (Auto) 100 (0-450) /uL Baso # (Auto) 0 (0-100) /uL Sodium 131 L (137-145) mmol/L Potassium 3.6 (3.4-5.1) mmol/L Chloride 101 (98-107) mmol/L Carbon Dioxide 23 (22-32) mmol/L BUN 5 L (7-17) mg/dL Creatinine 0.50 L (0.52-1.04) mg/dL Estimated GFR > 60.0 (>60) mL/min BUN/Creatinine Ratio 10.0 (6-22) Glucose 110 H (70-100) mg/dL Lactate (0.7-2.1) mmol/L Calcium 8.6 (8.4-10.2) mg/dL Total Bilirubin 0.7 (0.2-1.3) mg/dL AST 32 (14-36) IU/L ALT 21 (<35) IU/L Alkaline Phosphatase 65 (38-126) U/L Total Protein 6.3 (6.3-8.2) g/dL Albumin 3.7 (3.5-5.0) g/dL Globulin 2.6 (1.7-4.1) g/dL Albumin/Globulin Ratio 1.4 (1.0-2.8) Lipase 100 (23-300) U/L Procalcitonin < 0.05 (<0.5) ng/mL Ur Bilirubin Confirm (Negative) Urine RBC (0-5/HPF) Urine WBC (0-5/HPF) Ur Squamous Epith Cells (0-5/HPF) Urine Bacteria (None) Ur Culture Indicated? Urine Test (Negative) 05/10/20 05/10/20 05/10/20 Range/Units 01:40 04:57 04:57 WBC (4.5-11.0) X10^3/uL RBC (4.0-5.2) X10^6/uL Hgb (12.0-16.0) g/dL Hct (36-46) % MCV (80-100) fL MCH (26-34) PG MCHC (30-36) % RDW (11.6-14.8) % Plt Count (150-400) X10^3/uL Neut % (Auto) (50-75) % Lymph % (Auto) (25-40) % Steele % (Auto) (3-14) % Eos % (Auto) (2-4) % Baso % (Auto) (0-2) % Neut # (Auto) (8182-0483) /uL Lymph # (Auto) (3652-5090) /uL Steele # (Auto) (0-900) /uL Eos # (Auto) (0-450) /uL Baso # (Auto) (0-100) /uL Sodium (137-145) mmol/L Potassium (3.4-5.1) mmol/L Chloride (98-107) mmol/L Carbon Dioxide (22-32) mmol/L BUN (7-17) mg/dL Creatinine (0.52-1.04) mg/dL Estimated GFR (>60) mL/min BUN/Creatinine Ratio (6-22) Glucose (70-100) mg/dL Lactate 0.7 (0.7-2.1) mmol/L Calcium (8.4-10.2) mg/dL Total Bilirubin (0.2-1.3) mg/dL AST (14-36) IU/L ALT (<35) IU/L Alkaline Phosphatase (38-126) U/L Total Protein (6.3-8.2) g/dL Albumin (3.5-5.0) g/dL Globulin (1.7-4.1) g/dL Albumin/Globulin Ratio (1.0-2.8) Lipase (23-300) U/L Procalcitonin (<0.5) ng/mL Ur Bilirubin Confirm Negative (Negative) Urine RBC None seen (0-5/HPF) Urine WBC None seen (0-5/HPF) Ur Squamous Epith Cells 1-5 /hpf (0-5/HPF) Urine Bacteria Few (2-10) H (None) Ur Culture Indicated? Specimen cultured Urine Test Negative (Negative) Urine Dip Bedside Urine Glucose Negative Bedside Urine Bilirubin + 1 Bedside Urine Ketone ++ 40 Urine Specific [place] 1.010 Bedside Urine Occult Blood - Negative Bedside Urine pH 6.5 Bedside Urine Protein + 30 Bedside Urine Urobilinogen 1+ 2mg Bedside Urine Nitrite - Negative Bedside Urine Leukocytes +/- 15 Esterase Point of care testing: Urine Dip Bedside Urine Glucose Negative Bedside Urine Bilirubin + 1 Bedside Urine Ketone ++ 40 Urine Specific [place] 1.010 Bedside Urine Occult Blood - Negative Bedside Urine pH 6.5 Bedside Urine Protein + 30 Bedside Urine Urobilinogen 1+ 2mg Bedside Urine Nitrite - Negative Bedside Urine Leukocytes +/- [address] scan - abdomen/pelvis: Radiologist's 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 CT scan ordered secondary to increasing pain and changing pain. Is concerning for an internal hernia and a volvulus. Discussed the case with Dr. Troncoso with general surgery who recommended we contact facility with bariatric surgery capability. She did state that she would take the patient to the operating room with her was a delay in transport. I did discuss the case with Dr. Catarino snider who agreed it would be best that the patient was taken to the operating room at our facility for treatment in order to prevent worsening ischemia. They stated that they were happy to stand by and help postoperatively. This information was given to Dr. Troncoso. Patient was informed of the findings of the CT scan. Patient will be admitted for surgical evaluation and treatment Discharge Plan Departure Patient Disposition: Admitted As Inpatient Clinical Impression: Internal hernia, Volvulus, History of Agnieszka-en-Y gastric bypass Abdominal pain Qualifiers: Abdominal location: right upper quadrant Qualified Code(s): R10.11 - Right upper quadrant pain Admit Date/Time: 05/10/20 05:22 Admit Provider: Sveta Troncoso
[2020-05-10 01:55] LABS: Add Manual Diff / Slide Review NO; Basophils Absolute Auto 0 /uL (0-100); Basophils Percent Auto 0.6 % (0-2); Eosinophils Absolute Auto 100 /uL (0-450); Eosinophils Percent Auto 1.6 % (2-4); Hematocrit 36.2 % (36-46); Hemoglobin 12.6 g/dL (12.0-16.0); Lymphocytes Absolute Auto 1800 /uL (1100-4500); Lymphocytes Percent Auto 26.5 % (25-40); Mean Corpuscular HGB Conc 34.9 % (30-36); Mean Corpuscular Hemoglobin 35.7 PG (26-34); Mean Corpuscular Volume 102.5 fL (80-100); Monocytes Absolute Auto 600 /uL (0-900); Monocytes Percent Auto 9.3 % (3-14); Neutrophils Absolute Auto 4200 /uL (1500-7000); Platelet Count 230 X10^3/uL (150-400); Red Blood Cell Count 3.53 X10^6/uL (4.0-5.2); Red Cell Distribution Width 12.5 % (11.6-14.8); White Blood Cell Count 6.8 X10^3/uL (4.5-11.0)
[2020-05-10] MEDS: ONDANSETRON 4 MG/2 ML INJ IV ×2 (01:58→05:05)
[2020-05-10] MEDS: SODIUM CHLORIDE 0.9% 1,000 ML 1000 ML IV (01:58)
[2020-05-10] MEDS: LORazepam 2 MG/ML INJ 1 MG IV ×3 (01:58→18:27)
[2020-05-10 02:01] LABS: Lactate (Lactic Acid) 0.7 mmol/L (0.7-2.1)
[2020-05-10 02:03] LABS: Alanine Aminotransferase 21 IU/L (<35); Albumin 3.7 g/dL (3.5-5.0); Albumin Globulin Ratio 1.4 (1.0-2.8); Alkaline Phosphatase 65 U/L (38-126); Aspartate Aminotransferase 32 IU/L (14-36); Bilirubin Total 0.7 mg/dL (0.2-1.3); Blood Urea Nitrogen 5 mg/dL (7-17); Calcium 8.6 mg/dL (8.4-10.2); Carbon Dioxide 23 mmol/L (22-32); Chloride 101 mmol/L (98-107); Estimated Glomerular Filt Rate > 60.0 mL/min (>60); Globulin 2.6 g/dL (1.7-4.1); Glucose 110 mg/dL (70-100); HEMOLYSIS < 15 (0-50); Lipase 100 U/L (23-300); Potassium 3.6 mmol/L (3.4-5.1); Sodium 131 mmol/L (137-145); Total Protein 6.3 g/dL (6.3-8.2)
[2020-05-10] MEDS: HYDROMORPHONE 0.5 MG INJ IV ×3 (02:16→22:17)
[2020-05-10 02:18] LABS: Procalcitonin < 0.05 ng/mL (<0.5)
[2020-05-10] MEDS: SODIUM CHLORIDE 0.9% 1,000 ML 125 ML IV (04:13)
--- NOTE | 2020-05-10 04:40 | PC.NURSE ---
DR Troncoso in to exam.
--- NOTE | 2020-05-10 04:55 | PM.HP.1 ---
History of Present Illness History of Present Illness Date Patient Seen: 05/10/20 Time Patient Seen: 04:56 Chief complaint: severe stomach pain since yesterday Narrative: This is a 44 yo woman with history of RYGB two years ago in [place] with 140 lb weight loss. She came in to the ER two nights ago with epigastric pain, and was found to have no significant abnormality on her CT scan. Her labs were concerning for elevated lactate which came down somewhat with fluid bolus. She was sent home with return precautions. She has continued to have sever pain, and returned to the ER tonight. A repeat CT scan shows an internal hernia with vascular compromise of the bowel. The patient last ate at 11AM. She had a few sips of water several hours ago. ROS: The patient says she feels like she may be a little shaky, and concerned this is because she has not had a drink in a few days. Thirteen system review is otherwise negative other than as mentioned below and in HPI. Past medical and surgical history: Anxiety, endometriosis, cholecystectomy, tubal ablation, gastric bypass surgery Past surgical history: As above. In addition, the patient explained that during her gastric bypass surgery it took about 9 hours for lysis of adhesions due to her endometriosis Social history: She is employed at the [employer] She is here with her significant other, she denies current tobacco use, she reports using marijuana ?all day long,? and reports 5-8 glasses of wine per day. She does not recall the last time she went a day without alcohol. Family medical history: The patient's mother recently from breast cancer She can not recall any other significant family history, specifically no history of gastrointestinal disorders Allergies: She does not take NSAIDs because of her gastric bypass, but reports no allergic reaction to any medication Meds: Buspar for anxiety PE: GENERAL: Well groomed and cooperative. Appears stated age. In moderate distress due to abdominal pain. Answers questions promptly and appropriately. Vital signs noted. HENT: Normocephalic, atraumatic. Hearing intact. Oral mucosa is pink and moist. EYES: Conjunctiva pink, sclera white, no periorbital swelling. CARDIOVASCULAR: Regular rate. No pedal edema. RESPIRATORY: Non-tachypneic, breathing comfortably on room air. GASTROINTESTINAL: Abdomen soft, mildly distended, diffusely tender, well-healed laparoscopic with incisions GENITALURINARY: No flank tenderness. MUSCULOSKELETAL: Equal tone and mass bilaterally. SKIN: Warm, dry, soft, appropriate color for ethnicity. No other lesions, rashes, or wounds. NEURO: Alert and Oriented X 3. No gross sensory deficits, or cognitive issues. PSYCH: Appropriate affect and mood. Patient History Medical History (Updated 05/10/20 @ 05:07 by Bony Landa DO) Epigastric abdominal pain (Inactive) Surgical History (Updated 05/10/20 @ 04:19 by oBny Landa DO) History of cholecystectomy (Acute) History of endometrial ablation (Acute) History of Agnieszka-en-Y gastric bypass (Acute) History of tubal ligation (Acute) Family & Social History Safety & Behavioral: Feels Safe in Current Yes Environment Tobacco & Substance use: Smoking Status Former smoker alcohol intake frequency 3 or more drinks per day Substance Use Type marijuana Meds Home Medications and Allergies Home Medications Medication Instructions Recorded Confirmed Type omeprazole 40 mg PO DAILY #20 cap 05/08/20 Rx ondansetron 4 mg PO Q6H PRN #20 tab 05/08/20 Rx sucralfate [Carafate] 10 ml PO QACHS 10 Days #400 ml 05/08/20 Rx buspirone 10 mg PO DAILY 05/10/20 05/10/20 History Allergies Allergy/AdvReac Type Severity Reaction Status Date / Time NSAIDS (Non-Steroidal Allergy Verified 05/08/20 13:39 Anti-Inflamma Exam Vital Signs (past 8 hours): - 05/10/20 01:35 05/10/20 02:00 05/10/20 02:19 Temperature 98.9 F Pulse Rate 62 71 72 Respiratory Rate 20 14 16 Blood Pressure 156/82 H Blood Pressure [Left Arm] 140/90 Blood Pressure [Right Arm] 143/92 H Pulse Oximetry 98 94 93 05/10/20 02:48 05/10/20 03:20 05/10/20 04:20 Temperature Pulse Rate 72 74 64 Respiratory Rate 16 16 18 Blood Pressure Blood Pressure [Left Arm] 135/71 130/66 Blood Pressure [Right Arm] 141/74 H Pulse Oximetry 94 94 95 Oxygen Delivery Method Room Air Objective Imaging CT scan - abdomen: My impression: Internal hernia secondary to gastric bypass with swirl sign and threatened bowel. Radiologist's impression: S/p gastric bypass surgery with diffuse ascites and clockwise rotation of the mesenteric vessels. Dilation of ileal small bowel loops with significant submucosal edema and bowel wall thickening with an ileal bowel loops in the right lower quadrant. Multiple prominent mesenteric lymph nodes with engorgement of the mesenteric veins. No definite signs of pneumatosis or pneumoperitoneum. 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 vascular compromise to ileal small bowel loops located within the RLQ Labs Result Diagrams: 05/10/20 01:40 05/10/20 01:40 Labs: Laboratory Results - last 24 hr 05/10/20 05/10/20 05/10/20 01:40 01:40 01:40 WBC 6.8 RBC 3.53 L Hgb 12.6 Hct 36.2 MCV 102.5 H MCH 35.7 H MCHC 34.9 RDW 12.5 Plt Count 230 Neut % (Auto) 62.0 Lymph % (Auto) 26.5 [place] % (Auto) 9.3 Eos % (Auto) 1.6 L Baso % (Auto) 0.6 Neut # (Auto) 4200 Lymph # (Auto) 1800 [place] # (Auto) 600 Eos # (Auto) 100 Baso # (Auto) 0 Sodium 131 L Potassium 3.6 Chloride 101 Carbon Dioxide 23 BUN 5 L Creatinine 0.50 L Estimated GFR > 60.0 BUN/Creatinine Ratio 10.0 Glucose 110 H Lactate Calcium 8.6 Total Bilirubin 0.7 AST 32 ALT 21 Alkaline Phosphatase 65 Total Protein 6.3 Albumin 3.7 Globulin 2.6 Albumin/Globulin Ratio 1.4 Lipase 100 Procalcitonin < 0.05 05/10/20 01:40 WBC RBC Hgb Hct MCV MCH MCHC RDW Plt Count Neut % (Auto) Lymph % (Auto) [place] % (Auto) Eos % (Auto) Baso % (Auto) Neut # (Auto) Lymph # (Auto) [place] # (Auto) Eos # (Auto) Baso # (Auto) Sodium Potassium Chloride Carbon Dioxide BUN Creatinine Estimated GFR BUN/Creatinine Ratio Glucose Lactate 0.7 Calcium Total Bilirubin AST ALT Alkaline Phosphatase Total Protein Albumin Globulin Albumin/Globulin Ratio Lipase Procalcitonin Assessment & Plan Assessment & Plan narrative: This is a 44 yo woman with history of gastric bypass in [place] two years ago, who presents with ongoing epigastric pain and CT scan c/w internal hernia. Initially requested consult with an outside bariatric surgeon, but because of delayed response, and the high risk of bowel ischemia, we will go ahead to the OR here. I have discussed this with the patient, including risks and benefits of laparoscopic possible open reduction and repair of the internal hernia. I have explained the risks of bleeding, infection, damage to nearby structures, need for bowel resection, need for transfer to outside facility, need for additional surgery, need for open surgery, prolonged recovery, prolonged hospital stay, risks of anesthesia. Plan: Rapid covid test Urgent to OR for laparoscopic possible open reduction and repair of internal hernia, possible bowel resection CIWA scale and PRN Lorazepam Quality VTE Deep Vein Thrombosis/Pulmonary Embolism Present on Admission: No
[2020-05-10 05:07] LABS: RBC Urine None Seen (0-5/HPF); WBC Urine None Seen (0-5/HPF)
[2020-05-10 05:17] LABS: Pregnancy Test Urine Negative (Negative)
[2020-05-10 05:30] LABS: Ictotest Urine Negative (Negative); Squamous Epithelial Cell Urine 1-5 /HPF (0-5/HPF)
[2020-05-10 05:31] LABS: Bacteria Urine Few (2-10); Culture Indicated Urine Specimen Cultured
[2020-05-10 05:36] LABS: COVID19 -Nasal RAPID Negative (Negative)
--- NOTE | 2020-05-10 05:45 | PC.NURSE ---
ATOMIZER ASSEMBLERCHRISTOPHER Atkins took 2 grams cefazolin from de to the OR.
[2020-05-10] MEDS: CEFAZOLIN 2 GM/100 ML FROZ.PIGGY IV (05:54)
--- NOTE | 2020-05-10 06:31 | SUR.OPER ---
Supine on padded OR bed, head on pillow, arm padded and tucked at side, legs uncrossed, safety belt at thigh, tape over blanket over lower legs .
[2020-05-10] MEDS: BUPIVACAINE 0.25% W/ EPI 30 ML VIAL INJ (06:37)
[2020-05-10] MEDS: ACETAMINOPHEN IV 1,000 MG/100 ML VIAL 400 MG IV (07:30)
[2020-05-10] MEDS: LACTATED RINGERS 1,000 ML 42 ML IV ×2 (07:42→08:36)
[2020-05-10] MEDS: BUPIVACAINE LIPOSOME 266 MG/20 ML VIAL INJ (08:02)
--- NOTE | 2020-05-10 08:49 | P.OP_ITS ---
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 She has lost 50% of her body weight down to 140lbs from 280. She came into the ER two days ago with abdominal pain, but no cause for her pain was found. She returned last night to the ER and had a CT scan showing internal hernia, bowel edema, and vascular compromise of the bowel. Surgeon: Sveta Troncoso Waiter/Waitress Cabin Class: Jj Edwards Click Yes if Unassisted: No Anesthesia Type: General Operative Notes Findings: Chylous ascites, internal hernia defect x 2 with edematous ischemic appearing small bowel herniated through the Purdy's defect Specimen(s): none sent Estimated Blood Loss (mL): 50 Blood products transfused: none Procedure in detail: The patient was brought into the operating room and placed supine on the OR table. Sequential compression devices were placed on both legs and turned on. Appropriate perioperative antibiotics were given prior to the start of surgery. General anesthesia was induced the patient was intubated. A nelson catheter was placed and the abdomen was prepped and draped in sterile fashion. Surgical time-out was conducted. Local anesthetic was injected under the skin just inferior to the umbilicus and a 5 mm vertical incision was made at this site. The umbilical stalk was grasped with a Nette and elevated. A Veress needle was passed through the fascia into proper position. The position was tested with a saline drop test which was appropriate for intra-abdominal Veress needle placement. The abdomen was then insufflated in the usual fashion. Once insufflated to 15 mm Hg the Veress needle was removed and a 5 mm optical trocar was placed under direct vision using a 5 mm 30 degree scope. Once the camera was inside the abdomen I took a look around. There was no injury from port placement. Two additional ports were placed in a similar fashion in the right mid abdomen, right lower quadrant, and suprapubic position. Chylous ascites was seen in the pelvis. There were segments of dilated bowel, which looked dusky, but not infarcted. I began to run the bowel from the terminal ileum, but it could not be freed from the mesenteric defect where it was herniated. A hand port was placed, using a GelPort through an 8 cm lower midline incision. Even with the hand port, I was not able to pulled the bowel out of the internal hernia defect. This point the incision was extended along the midline fascia to about 4 cm superior to the umbilicus. I then delivered the bowel out of the abdomen, and was able to identify a Purdy's hernia defect through which most of the small bowel was herniated. I attempted to reduce the herniated loops of bowel from the internal hernia defect. It was quite difficult, given the dilation of the bowel, and the tightness of the defect. I was able to take down some of the adhesions, but there were dense adhesions to the transverse colon which were very close to the colon wall itself. I oversewed this location with interrupted 3 0 silk suture in a Lemberted fashion to reinforce the colon wall where adhesions were taken down very closely to it. There was no injury or defect in the colon wall itself. My partner Dr. Edwards came to help with reducing the bowel since I was not able to reduce it through the defect alone. Dr. Edwards elevated the defect, widening it, while I reduce the bowel by both gently milking it through the defect and carefully pushing it from the other side back into normal position. There was a significant amount of small intestine herniated through the defect, and the reduction of the bowel was quite difficult. We did finally get it all entirely reduced, and the bowel all was nicely pink. There was some peristalsis beginning at that point, and the dilated bowel became more decompressed. We then again ran the bowel including the biliary pancreatic limb and the Agnieszka limb from their origins to the JJ anastomosis, and then down the common channel to the distal terminal ileum. There was another defect created by the JJ anastomosis. Both defects were then closed using interrupted silk sutures in the mesentery. All of the bowel was placed into appropriate anatomical position without twisting or kinking. At this point the abdominal wall was injected with the remainder of the 0.25% Marcaine with epi for a total of 60 mL for the case. I then also injected 20 mL of Exparel into the abdominal wall. I then closed the abdominal wall with running 0 PDS suture, and reinforced it with 0 Vicryl horizontal mattress sutures. The skin was closed with osmany, 4 Monocryl at the umbilicus, and some 3 0 nylon at the superior end of the incision, as the patient had multiple skin bleeders which were difficult to control. The 2 remaining port sites that were not incorporated into the midline incision were closed with 4 Monocryl and secured with Steri-Strips. Steri-Strips were placed over the umbilicus, the remainder the incision was covered with 4 x 4 gauze. The 2 port sites were covered with Band-Aids. The Nelson was left in place. Needle sponge and instrument counts were correct x2 at the end of the procedure. The patient tolerated the procedure well. Patient was awakened from anesthesia and extubated. She was transferred to the postanesthesia care unit in stable condition. Complications: none Post-operative Condition: stable Disposition: PACU
[2020-05-10] MEDS: fentaNYL 100 MCG/2 ML INJ IV (09:38)
[2020-05-10] MEDS: SODIUM CHLORIDE 0.9% 1,000 ML 100 ML IV ×2 (11:33→20:12)
[2020-05-10] MEDS: HYDROMORPHONE 2 MG INJ 1 MG IV (11:34)
[2020-05-10] MEDS: ACETAMINOPHEN 325 MG TABLET 650 MG PO ×2 (12:30→18:26)
--- NOTE | 2020-05-10 14:09 | PC.NURSE ---
RECEIVED PT FROM PACU - SHE IS DROWSY BUT ORIENTED AND C/O ABD PAIN 04/25- MEDICATED WITH IV DILAUDID WHICH SHE REPORTS VERY EFFECTIVE APPROX 30-45 MINUTES SHE C/O ITCHING CHEST AND SLIGHT REDNESS NOTED- MEDICATED WITH IV LORAZ BOTH FOR ITCH AND CIWA OF 4- TOLERATING CLEAR LIQUIDS WELL NO NAUSEA - QUIET BOWEL TONES, LUNGS CLEAR , ROOM AIR 96-98%, ABD WITH MIDLINE INCISION AND DRESSINGS CDI, ALSO TW0 LARGE BANDAIDS FROM INITIAL LAP-SITES, NS 100CC/H, PTS SIGNIFICANT OTHER, STEFAN AT BEDSIDE
--- NOTE | 2020-05-10 15:25 | DIET.PN ---
Dietary Progress Note Per pts post-RYGB status, kitchen instructed to send SF jello, tea, and broth only while on clear liquid diet to avoid dumping syndrome. When pt advances to fulls, we have unsweetened tamazight yogurt and bariatric formula ONS Enlive Max available to support high protein requirements and accommodate small gastric pouch.
[2020-05-10] MEDS: PANTOPRAZOLE 40 MG VIAL 20 MG IV (20:55)
[2020-05-10] MEDS: HEPARIN 5,000 UNIT/ML VIAL 5000 UNIT SUBCUT (20:55)
[2020-05-11] MEDS: ACETAMINOPHEN 325 MG TABLET 650 MG PO ×4 (00:01→17:27)
[2020-05-11] MEDS: HYDROMORPHONE 0.5 MG INJ IV ×3 (00:18→06:00)
[2020-05-11 05:00] VITALS: BP 120/68; PULSE 86; RESP 16; TEMP 36.6; O2SAT 98
[2020-05-11 05:00] LABS: Add Manual Diff / Slide Review NO; Basophils Absolute Auto 100 /uL (0-100); Basophils Percent Auto 0.6 % (0-2); Eosinophils Absolute Auto 400 /uL (0-450); Eosinophils Percent Auto 4.6 % (2-4); Hematocrit 33.5 % (36-46); Hemoglobin 11.6 g/dL (12.0-16.0); Lymphocytes Absolute Auto 1500 /uL (1100-4500); Lymphocytes Percent Auto 17.9 % (25-40); Mean Corpuscular HGB Conc 34.6 % (30-36); Mean Corpuscular Hemoglobin 35.7 PG (26-34); Mean Corpuscular Volume 103.1 fL (80-100); Monocytes Absolute Auto 600 /uL (0-900); Monocytes Percent Auto 7.8 % (3-14); Neutrophils Absolute Auto 5700 /uL (1500-7000); Neutrophils Percent Auto 69.1 % (50-75); Platelet Count 202 X10^3/uL (150-400); Red Blood Cell Count 3.25 X10^6/uL (4.0-5.2); Red Cell Distribution Width 12.1 % (11.6-14.8); White Blood Cell Count 8.2 X10^3/uL (4.5-11.0)
[2020-05-11 05:13] LABS: BUN Creatinine Ratio 9.8 (6-22); Blood Urea Nitrogen 5 mg/dL (7-17); Calcium 7.9 mg/dL (8.4-10.2); Carbon Dioxide 27 mmol/L (22-32); Chloride 101 mmol/L (98-107); Estimated Glomerular Filt Rate > 60.0 mL/min (>60); Glucose 96 mg/dL (70-100); HEMOLYSIS 31 (0-50); Magnesium 1.5 mg/dL (1.6-2.3); Potassium 4.3 mmol/L (3.4-5.1); Sodium 131 mmol/L (137-145)
[2020-05-11] MEDS: SODIUM CHLORIDE 0.9% 1,000 ML 100 ML IV ×2 (06:05→17:29)
[2020-05-11] MEDS: ONDANSETRON 4 MG/2 ML INJ IV (06:05)
[2020-05-11] MEDS: HYDROMORPHONE 1 MG INJ IV ×4 (08:20→21:12)
[2020-05-11] MEDS: PANTOPRAZOLE 40 MG VIAL 20 MG IV ×2 (08:20→21:12)
[2020-05-11] MEDS: HEPARIN 5,000 UNIT/ML VIAL 5000 UNIT SUBCUT ×2 (08:21→21:12)
[2020-05-11] MEDS: LORazepam 2 MG/ML INJ 1 MG IV ×2 (08:21→21:15)
[2020-05-11] MEDS: MAGNESIUM SULFATE 2 GM/50 ML PIGGYBACK IV (08:27)
[2020-05-11 08:57] VITALS: BP 116/71; PULSE 91; RESP 16; TEMP 36.9; O2SAT 99
[2020-05-11 08:58] VITALS: BP 116/71; PULSE 92; RESP 22
[2020-05-11] MEDS: BUSPIRONE 5 MG TABLET 10 MG PO (10:21)
--- NOTE | 2020-05-11 10:57 | DIET.PN ---
Dietary Progress Note Assessment: 44y F admitted for internal hernia and incarcerated bowl s/p d1 for Laparoscopic converted to open reduction and repair of internal hernia c Dr. Delcid. Pt having issues c clear liquids- salty broth burning mouth and cannot tolerate concentrated sugars r/t post-RYGB. Dr. Delcid okays trialing Ensure Max (bariatric ONS c 1g sugar and 30g PRO) c lunch today. Will send up diluted broth also. Pt had RYGB in [place] 2y ago after learning would take 2y and 25k to have in [place] per her [place]. Pt received little post-bypass education there but participates in groups, chatrooms, and does research on own c support of PCP. When covering main points c pt, she does seem to be knowledgeable and maintains most aftercare. Pt feels bariatric surgery was good decision and is happy c results. Pt taking daily MVI, D3, B12, biotin but not supplementing c calcium or magnesium. Pt experiences dumping syndrome c concentrated sugars or when not thoroughly chewing food/overeating. Usual intake: Pt tries to eat every 2 hours B: premier protein ONS, decaf coffee L: sandwich or meat in lettuce leaf D: 2T mashed potatoes or rice c meat Pt drinks 20oz SF gatorade daily but little water, pt has chronic constipation which bothers her. Pt endorses long hx c etoh intake, works at [employer], was not working for a few months where etoh use escalated to drinking 6-8 glasses wine throughout day. Pt now again working and states the structure helps her reduce use. 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 Pt experiencing several big life changes in past 6 mo: divorce, job change, new relationship, friend [place] change, relocation, mother , and pandemic. HT: 170.1cm WT: 77.1kg UBW: 127kg BMI: 26.6 Pt tries to maintain 150#, she does not like loose skin when below this number and does not want to gain. Labs: hgb 11.6 L, calcium 7.9 L, Mg 1.5 L MNA: 13 Erlin: 22 Interventions: 1. Reinforced post-bariatric self-care: importance of daily supplement use, small frequent meals, prioritizing protein, daily physical activity, hydration. 2. Discussed ways to increase fluid intake to help c constipation including non-water options such as watermelon, SF drinks and popcicles, soup. 3. Discussed increased risk of etoh abuse c post-bariatric population, increased risks for malnutrition from displacing nutritional foods, and etoh damage to tissues in GI tract. Diet Order: clears plus trialing Ensure Max ONS EER: 100g PRO per post bariatric Monitoring/Evaluations: POs, ONS tolerance
--- NOTE | 2020-05-11 11:21 | PM.PN.1 ---
Subjective Subjective Date Patient Seen: 05/11/20 Time Patient Seen: 14:57 Interval history: No acute events overnight. The patient is tolerating clears and ambulating. She has not passed any gas. Exam Vital Signs (past 8 hours): - 05/11/20 05:00 05/11/20 08:57 05/11/20 08:58 Temperature 97.8 F 98.4 F Pulse Rate 86 91 H 92 H Respiratory Rate 16 16 22 Blood Pressure 120/68 116/71 116/71 Pulse Oximetry 98 99 Oxygen Delivery Method Room Air Oxygen Flow Rate 0 Narrative Exam Narrative: GENERAL: Alert, oriented, comfortable CARDIOVASCULAR: Regular rate. No pedal edema. RESPIRATORY: Non-tachypneic, breathing comfortably on room air. GASTROINTESTINAL: Abdomen soft and mildly distended, appropriate tenderness to palpation for postop day 1, dressings clean, dry, and intact GENITALURINARY: No flank tenderness. MUSCULOSKELETAL: Equal tone and mass bilaterally. SKIN: Warm, dry, soft, appropriate color for ethnicity. No other lesions, rashes, or wounds. Objective Labs Result Diagrams: 05/11/20 04:35 05/11/20 04:35 Labs: Laboratory Results - last 24 hr 05/10/20 05/11/20 05/11/20 10:10 04:35 04:35 WBC 8.2 RBC 3.25 L Hgb 11.6 L Hct 33.5 L MCV 103.1 H MCH 35.7 H MCHC 34.6 RDW 12.1 Plt Count 202 Neut % (Auto) 69.1 Lymph % (Auto) 17.9 L [place] % (Auto) 7.8 Eos % (Auto) 4.6 H Baso % (Auto) 0.6 Neut # (Auto) 5700 Lymph # (Auto) 1500 [place] # (Auto) 600 Eos # (Auto) 400 Baso # (Auto) 100 Sodium 131 L Potassium 4.3 Chloride 101 Carbon Dioxide 27 BUN 5 L Creatinine 0.51 L Estimated GFR > 60.0 BUN/Creatinine Ratio 9.8 Glucose 96 Calcium 7.9 L Phosphorus 4.0 Magnesium 1.5 L Nasal Screen MRSA (PCR) Negative for mrsa Assessment & Plan Assessment and plan (1) Status post laparotomy: Status: Acute (2) History of Agnieszka-en-Y gastric bypass: Status: Acute Assessment & Plan narrative: This is a 44-year-old woman postop day 1 from laparotomy and reduction and repair of internal hernia through Howell's defect from her Agnieszka-en-Y gastric bypass. The patient is doing fairly well, but is not had return of bowel function. She is taking some clears, and has had the need for nausea medication at least once. She is ambulating fairly well common her Red has been removed. Her magnesium was 1.5 this morning and it was repleted. Plan: IV fluids, replete electrolytes Ambulate as tolerated Pain control with Tylenol and IV narcotics as needed Add bariatric supplement per dietitian, otherwise continue low sugar clears until return of bowel function has been reach Continue CIWA scale and as needed lorazepam COVID-19 COVID-19 status: Negative Result date/Date tested (Pos, Neg/Pending): 05/10/20 Time Spent With Patient Time with patient: 15-24 minutes Quality VTE Deep Vein Thrombosis/Pulmonary Embolism Present on Admission: No
[2020-05-11 13:00] VITALS: BP 108/68; PULSE 85; RESP 16; TEMP 36.7; O2SAT 96
[2020-05-11 15:49] VITALS: BP 122/68; PULSE 87; RESP 16; TEMP 36.4; O2SAT 98
[2020-05-11] MEDS: BECLOMETHASONE 40 MCG INH 10.6 GM 2 PUFF INH (20:25)
[2020-05-11 20:31] VITALS: PULSE 87; RESP 16; O2SAT 98
[2020-05-12 00:19] VITALS: BP 119/57; PULSE 83; RESP 16; TEMP 36.6; O2SAT 99
[2020-05-12] MEDS: HYDROMORPHONE 1 MG INJ IV ×4 (01:42→22:44)
--- NOTE | 2020-05-12 02:02 | PC.NURSE ---
0200- Patient c/o increased abdominal discomfort. Abdominal binder taken off and incision observed. Dressings are intact. Moderate amount of distention noted and patient is not passing gas. Patient says she is burping. Patient encouraged to continue Incentive Spirometer and walk. Medicated per order for pain.
[2020-05-12] MEDS: LORazepam 2 MG/ML INJ 1 MG IV ×2 (04:18→20:38)
[2020-05-12] MEDS: ACETAMINOPHEN 325 MG TABLET 650 MG PO ×3 (04:18→22:44)
[2020-05-12] MEDS: SODIUM CHLORIDE 0.9% 1,000 ML 100 ML IV ×2 (04:21→16:21)
[2020-05-12 04:25] VITALS: BP 133/86; PULSE 86; RESP 18; TEMP 36.9; O2SAT 99
[2020-05-12 06:51] LABS: Add Manual Diff / Slide Review NO; Basophils Absolute Auto 0 /uL (0-100); Basophils Percent Auto 0.4 % (0-2); Eosinophils Absolute Auto 400 /uL (0-450); Eosinophils Percent Auto 6.5 % (2-4); Hematocrit 28.6 % (36-46); Hemoglobin 9.9 g/dL (12.0-16.0); Lymphocytes Absolute Auto 1400 /uL (1100-4500); Lymphocytes Percent Auto 22.2 % (25-40); Mean Corpuscular HGB Conc 34.8 % (30-36); Mean Corpuscular Hemoglobin 36.2 PG (26-34); Mean Corpuscular Volume 103.9 fL (80-100); Monocytes Absolute Auto 400 /uL (0-900); Monocytes Percent Auto 7.1 % (3-14); Neutrophils Absolute Auto 4000 /uL (1500-7000); Neutrophils Percent Auto 63.8 % (50-75); Platelet Count 190 X10^3/uL (150-400); Red Blood Cell Count 2.75 X10^6/uL (4.0-5.2); Red Cell Distribution Width 12.5 % (11.6-14.8); White Blood Cell Count 6.2 X10^3/uL (4.5-11.0)
[2020-05-12 06:57] LABS: BUN Creatinine Ratio 8.2 (6-22); Blood Urea Nitrogen 4 mg/dL (7-17); Calcium 7.9 mg/dL (8.4-10.2); Carbon Dioxide 26 mmol/L (22-32); Chloride 103 mmol/L (98-107); Estimated Glomerular Filt Rate > 60.0 mL/min (>60); Glucose 78 mg/dL (70-100); HEMOLYSIS < 15 (0-50); Magnesium 1.8 mg/dL (1.6-2.3); Phosphorous 3.1 mg/dL (2.5-4.5); Potassium 3.4 mmol/L (3.4-5.1); Sodium 132 mmol/L (137-145)
[2020-05-12 07:34] VITALS: BP 127/75; PULSE 82; RESP 18; TEMP 36.6; O2SAT 96
--- NOTE | 2020-05-12 09:53 | P.PN_ITS ---
Subjective Subjective Date Patient Seen: 05/12/20 Time Patient Seen: 09:53 Interval history: No acute overnight events. Is tolerating a clear liquid diet without nausea or vomiting. Continues to have hiccups no passage of flatus. incision is tender Exam Vital Signs (past 8 hours): - 05/12/20 04:25 05/12/20 07:34 Temperature 98.4 F 97.8 F Pulse Rate 86 82 Respiratory Rate 18 18 Blood Pressure 133/86 127/75 Pulse Oximetry 99 96 Oxygen Delivery Method Room Air Oxygen Flow Rate 0 Narrative Exam Narrative: General adult female alert oriented no acute distress Chest nonlabored respiration Abdomen soft appropriately tender to palpation midline incision clean dry intact dressing Objective Labs Result Diagrams: 05/12/20 06:30 05/12/20 06:30 Labs: Laboratory Results - last 24 hr 05/12/20 05/12/20 06:30 06:30 WBC 6.2 RBC 2.75 L Hgb 9.9 L Hct 28.6 L MCV 103.9 H MCH 36.2 H MCHC 34.8 RDW 12.5 Plt Count 190 Neut % (Auto) 63.8 Lymph % (Auto) 22.2 L [place] % (Auto) 7.1 Eos % (Auto) 6.5 H Baso % (Auto) 0.4 Neut # (Auto) 4000 Lymph # (Auto) 1400 [place] # (Auto) 400 Eos # (Auto) 400 Baso # (Auto) 0 Sodium 132 L Potassium 3.4 Chloride 103 Carbon Dioxide 26 BUN 4 L Creatinine 0.49 L Estimated GFR > 60.0 BUN/Creatinine Ratio 8.2 Glucose 78 Calcium 7.9 L Phosphorus 3.1 Magnesium 1.8 Assessment & Plan Post-op Postoperative Procedures: Procedures Operation Date: 05/10/20 05:00 Actual Procedures Side Surgeon p Laparoscopy, Diagnostic, GEN CONVERTED TO OPEN, REDUCTION AND REPAIR INTERNAL HERNIA Not Applicable Sveta Troncoso MD Postoperative plan narrative: 44-year-old woman with a prior Agnieszka-en-Y gastric bypass postoperative day 2 after a exploratory laparotomy and repair of internal hernia, no bowel resection was required. -postoperative ileus-continue clear liquid diet. May advance once has return of bowel function -replace electrolytes as needed -of bed ambulating -SCDs and subcutaneous heparin for DVT prophylaxis Quality VTE Deep Vein Thrombosis/Pulmonary Embolism Present on Admission: No
[2020-05-12] MEDS: POTASSIUM CHLORIDE 60 MEQ in SODIUM CHLORIDE 0.9% 500 ML 88.333 ML IV (10:09)
[2020-05-12] MEDS: BECLOMETHASONE 40 MCG INH 10.6 GM 2 PUFF INH ×2 (10:10→19:55)
[2020-05-12] MEDS: HEPARIN 5,000 UNIT/ML VIAL 5000 UNIT SUBCUT ×2 (10:10→20:38)
[2020-05-12] MEDS: DOCUSATE 100 MG CAPSULE PO ×2 (10:10→20:39)
[2020-05-12] MEDS: MAGNESIUM SULFATE 2 GM/50 ML PIGGYBACK IV (10:10)
[2020-05-12] MEDS: PANTOPRAZOLE 40 MG VIAL 20 MG IV ×2 (10:10→20:38)
[2020-05-12] MEDS: BUSPIRONE 5 MG TABLET 10 MG PO (10:10)
[2020-05-12 11:45] VITALS: BP 114/88; PULSE 81; RESP 16; TEMP 37.1; O2SAT 96
--- NOTE | 2020-05-12 15:08 | PC.NURSE ---
AM shift assumed care of Pt, pain controlled with IV dilaudid and APAP, denies nausea, no flatus or BM this shift. hiccups noted. Ambulating in tracy as tolerated with ABD binder in place. BT hypoactive. Upper quadrants hypo, more active to Lower quadrants.
--- NOTE | 2020-05-12 15:20 | PT.IIE ---
Current Diagnoses Unspecified abdominal hernia with obstruction, without gangrene (05/10/20) Bariatric surgery status (05/10/20) Other specified postprocedural states (05/10/20) Surgery Performed Operation Date: 05/10/20 05:00 Actual Procedures p Laparoscopy, Diagnostic, GEN CONVERTED TO OPEN, REDUCTION AND REPAIR INTERNAL HERNIA(Not Applicable) - Sveta Troncoso MD Surgical History (Last Reviewed 05/10/20 @ 05:07 by Bony Landa DO) History of cholecystectomy (Acute) History of endometrial ablation (Acute) History of Agnieszka-en-Y gastric bypass (Acute) History of tubal ligation (Acute) Medical History (Last Reviewed 05/10/20 @ 05:07 by Bony Landa DO) Epigastric abdominal pain (Inactive) Physical Therapy Inpatient Evaluation/Re-Eval M1 PT/OT-IP Prior Functional Status Start: 05/12/20 16:29 Freq: NEEDED Status: Active Protocol: Document 05/12/20 15:20 AB (Rec: 05/12/20 17:02 AB [id number]) Medical Review Prior Functional Status Medical History Reviewed Yes Communication able to make needs known Mobility and Gait pt stated that she is independent with all mobilities and ambulation without AD Social History Household Members none Living Arrangements Apartment/Condo Number of Floors (Floors) One Floor Number of Stairs To Enter/Railing? 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 Additional Social History Comment pt stated that her boyfriend will be able to assist her; pt stated that she will stay at her house but at times will stay at her boyfriend's house pt stated that she works at the [employer] M2 PT-IP Current Condition Start: 05/12/20 16:29 Freq: NEEDED Status: Active Protocol: Document 05/12/20 15:20 AB (Rec: 05/12/20 17:02 AB [id number]) Physical Therapy Current Condition Current Condition Evaluation Date 05/12/20 Treatment Diagnosis internal hernia s/p laparotomy ; difficulty in walking Onset Date 05/10/20 Precautions Abdominal Surgery Precautions Log Roll,Lifting Restrictions, Gait Belt above Incisional Area M3 PT-IP Subjective Start: 05/12/20 16:29 Freq: NEEDED Status: Active Protocol: Document 05/12/20 15:20 AB (Rec: 05/12/20 17:02 AB [id number]) Subjective Physical Therapy Visit Type Type Initial Evaluation Visit Start Time 15:20 Visit Stop Time 16:17 Total Visit Minutes 57 Number of PUBLIC WORKS SUPERVISOR Visits 0 Physical Therapy Visit Comments Patient Comments agreeable to do PT Therapy Pain Assessment Pain When Pain Assessed At Rest Pain Present Pain Present Pain Reported Location rt abd. Intensity 2 M4 PT-IP Mobility and Gait Start: 05/12/20 16:29 Freq: NEEDED Status: Active Protocol: Document 05/12/20 15:20 AB (Rec: 05/12/20 17:02 AB [id number]) PT-Bed Mobility Assessment Rolling Type of Rolling Log Rolling Level of Assist Standby Assistance Supine to Sit Supine to Sit Standby Assistance Sit to Supine Sit to Supine Standby Assistance Scooting Scooting to Edge of Bed Standby Assistance PT-Transfer Assessment Sit to and From Stand Sit to and from Stand Standby Assistance Equipment Transfer Assistive Device None,Gait Belt Orthotic/Prosthetic Devices or Brace: No Transfer Ability Level of Assist Standby Assistance Comments Mobility Comments educated on abdominal precautions and log roll bed mobility. completed log roll supine <>sit SBA. completed sit to stand SBA and ambulated without AD SBA >300 ft without LOB. completed up/down steps without AD SBA. ambulated back to her room. informed pt that PT intervention is not needed at this time and pt agreed. informed nurse. Gait Assessment Gait Gait Assistance Required: Standby Assistance Distance (Feet) 300 Assistive Devices Assistive Device None,Gait Belt Orthotic/Prosthetic Devices or Brace: No Gait Deviations General Gait Pattern Within Normal Limits Factors Limiting Gait Function Factors Limiting Gait Function Decreased Activity Tolerance, Pain Stair Climbing Assessment Evaluation Level of Assist On Stairs Standby Assistance Devices Stair Climbing Assistive Devices None Technique/Endurance Stair Climbing Direction Ascend and Descend Stair Climbing Technique Step Over Step Number of Steps Climbed 3 Query Text: Stair Climbing Set # Repetitions (reps) 1 PT-Balance Assessment Sitting Balance and Reactions Static Sitting Balance Ability Normal Dynamic Sitting Balance Ability Normal Standing Balance and Reactions Static Standing Balance Ability Good Dynamic Standing Balance Ability Good Device Used without AD M5 PT-IP Objective Assessments Start: 05/12/20 16:29 Freq: NEEDED Status: Active Protocol: Document 05/12/20 15:20 AB (Rec: 05/12/20 17:02 [id number]) Orientation Orientation/Cognition Level of Alertness Alert Orientation Name,Age,Birthday,Month,Date, Year,Day of Week,Place, Situation Language Function Ability No Deficits Noted Safety Awareness Understands Safety Issues Memory Description No Deficits Noted Gross Range of Motion Lower Extremity ROM Assessment Within Functional Limits Strength Lower Extremity Strength Assessment Within Functional Limits Coordination Assessment Gross Coordination Gross Coordination WNL Sensation Assessment Sensation Gross Sensation WNL Muscle Tone Muscle Tone WNL Yes M6 PT-IP Treatment Start: 05/12/20 16:29 Freq: NEEDED Status: Active Protocol: Document 05/12/20 15:20 AB (Rec: 05/12/20 17:02 [id number]) Physical Therapy Treatment Education Education Provided Precautions,Safety M7 PT-IP Assessment and Plan Start: 05/12/20 16:29 Freq: NEEDED Status: Active Protocol: Document 05/12/20 15:20 AB (Rec: 05/12/20 17:02 [id number]) PT Summary Assessment and Plan Potential Rehabilitation Potential Good Status of Condition at Evaluation Stable Summary Impairments Pain Assessment Summary PT eval completed and no further PT intervention indicated. SBA for mobility without AD for safety while here in the hospital considering pt is receiving IV meds/fluids. Informed nurse regarding d/c PT and for nurses to set up and assist pt with ambulation needs for IV management. Frequency of Treatment Frequency Of Treatment Discharge Recommendations To Nursing Amount of Assist Needed Standby Assistance Discharge Recommendations PT Discharge Recommendations Home with Assistance Transportation Needs at Discharge Private Vehicle
[2020-05-12 15:37] VITALS: BP 110/64; PULSE 87; RESP 20; TEMP 36.6; O2SAT 98
--- NOTE | 2020-05-12 15:45 | CM.IDA ---
Initial DCP Assessment, Late Note: Patient is a 44 yo female, resident of [place]. Patient is now POD#2 from lap repair of internal hernia, h/o Agnieszka-en-Y gastric bypass and chronic ETOH use, CIWA 6.27.20 at 0800 was 3. PCP: Unknown Payer: [facility] Management Reviewed chart over last 24 hrs, attempted to meet w/patient yesterday and nursing staff suggested waiting since patient was quite uncomfortable. According to Suzette Evangelista, Truck Sales Representative: Pt endorses long hx c etoh intake, works at [email or web address], was not working for a few months where etoh use escalated to drinking 6-8 glasses wine throughout day. Pt now again working and states the structure helps her reduce use. 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 Pt experiencing several big life changes in past 6 mo: divorce, job change, new relationship, friend [place] change, relocation, mother , and pandemic. Patient now POD#2 w/post operative ileus, awaiting return of bowel function. Patient has been ambulating hallway. DCP team will follow closely. No CURING PRESS OPERATOR consult at this time for h/o chronic ETOH use. DC home expected when medically cleared. Would benefit from CURING PRESS OPERATOR visit before DC to review outpt counseling options, in lieu of patient's recent life changes and stressors, if patient interested in such. SVETA Williamson
[2020-05-12 19:58] VITALS: BP 130/81; RESP 20; TEMP 36.6
[2020-05-13] VITALS (8 sets, daily range): BP systolic 116–129; BP diastolic 57–72; PULSE 73–85; RESP 16–18; TEMP 36.5–36.8; O2SAT 93–100
[2020-05-13] MEDS: SODIUM CHLORIDE 0.9% 1,000 ML 100 ML IV (04:10)
[2020-05-13] MEDS: ACETAMINOPHEN 325 MG TABLET 650 MG PO (04:16)
[2020-05-13] MEDS: HYDROMORPHONE 0.5 MG INJ IV (04:16)
[2020-05-13 05:30] LABS: BUN Creatinine Ratio 11.1 (6-22); Blood Urea Nitrogen 5 mg/dL (7-17); Calcium 8.2 mg/dL (8.4-10.2); Carbon Dioxide 22 mmol/L (22-32); Chloride 103 mmol/L (98-107); Estimated Glomerular Filt Rate > 60.0 mL/min (>60); Glucose 68 mg/dL (70-100); HEMOLYSIS < 15 (0-50); Magnesium 1.7 mg/dL (1.6-2.3); Phosphorous 3.7 mg/dL (2.5-4.5); Potassium 3.5 mmol/L (3.4-5.1); Sodium 133 mmol/L (137-145)
[2020-05-13 05:42] LABS: Add Manual Diff / Slide Review NO; Basophils Absolute Auto 0 /uL (0-100); Basophils Percent Auto 0.4 % (0-2); Eosinophils Absolute Auto 500 /uL (0-450); Eosinophils Percent Auto 9.2 % (2-4); Hemoglobin 10.4 g/dL (12.0-16.0); Lymphocytes Absolute Auto 1500 /uL (1100-4500); Lymphocytes Percent Auto 28.8 % (25-40); Mean Corpuscular HGB Conc 35.8 % (30-36); Mean Corpuscular Hemoglobin 37.2 PG (26-34); Mean Corpuscular Volume 104.1 fL (80-100); Monocytes Absolute Auto 400 /uL (0-900); Neutrophils Absolute Auto 2900 /uL (1500-7000); Neutrophils Percent Auto 54.6 % (50-75); Platelet Count 221 X10^3/uL (150-400); Red Blood Cell Count 2.79 X10^6/uL (4.0-5.2); Red Cell Distribution Width 12.1 % (11.6-14.8); White Blood Cell Count 5.4 X10^3/uL (4.5-11.0)
[2020-05-13] MEDS: BECLOMETHASONE 40 MCG INH 10.6 GM 2 PUFF INH ×2 (09:33→19:33)
[2020-05-13] MEDS: PANTOPRAZOLE 40 MG VIAL 20 MG IV ×2 (10:10→20:57)
[2020-05-13] MEDS: BUSPIRONE 5 MG TABLET 10 MG PO (10:10)
[2020-05-13] MEDS: DOCUSATE 100 MG CAPSULE PO ×2 (10:10→20:57)
[2020-05-13] MEDS: HEPARIN 5,000 UNIT/ML VIAL 5000 UNIT SUBCUT ×2 (10:10→20:57)
[2020-05-13] MEDS: MAGNESIUM SULFATE 2 GM/50 ML PIGGYBACK IV (10:15)
--- NOTE | 2020-05-13 11:09 | PM.PNPO.1 ---
Subjective Subjective Date Patient Seen: 05/13/20 Time Patient Seen: 11:09 Interval history: Feels less bloated than yesterday, passing flatus no nausea vomiting or fever. No acute overnight events. Exam Vital Signs (past 8 hours): - 05/13/20 04:21 05/13/20 07:54 05/13/20 09:36 Temperature 97.7 F 98.1 F Pulse Rate 85 75 82 Respiratory Rate 16 16 16 Blood Pressure 129/69 116/58 L Pulse Oximetry 93 98 99 Oxygen Delivery Method Room Air Oxygen Flow Rate 0 Narrative Exam Narrative: General adult female alert oriented no acute distress Abdomen soft nontender midline incision clean dry intact with osmany in place. No erythema or drainage Objective Labs Result Diagrams: 05/13/20 04:56 05/13/20 04:56 Labs: Laboratory Results - last 24 hr 05/13/20 05/13/20 04:56 04:56 WBC 5.4 RBC 2.79 L Hgb 10.4 L Hct 29.0 L MCV 104.1 H MCH 37.2 H MCHC 35.8 RDW 12.1 Plt Count 221 Neut % (Auto) 54.6 Lymph % (Auto) 28.8 [place] % (Auto) 7.0 Eos % (Auto) 9.2 H Baso % (Auto) 0.4 Neut # (Auto) 2900 Lymph # (Auto) 1500 [place] # (Auto) 400 Eos # (Auto) 500 H Baso # (Auto) 0 Sodium 133 L Potassium 3.5 Chloride 103 Carbon Dioxide 22 BUN 5 L Creatinine 0.45 L Estimated GFR > 60.0 BUN/Creatinine Ratio 11.1 Glucose 68 L Calcium 8.2 L Phosphorus 3.7 Magnesium 1.7 Assessment & Plan Post-op Postoperative Procedures: Procedures Operation Date: 05/10/20 05:00 Actual Procedures Side Surgeon p Laparoscopy, Diagnostic, GEN CONVERTED TO OPEN, REDUCTION AND REPAIR INTERNAL HERNIA Not Applicable Sveta Troncoso MD Postoperative plan narrative: 44-year-old woman with a history of a Agnieszka-en-Y gastric bypass postoperative day 3 status post exploratory laparotomy for incarcerated internal hernia did not require bowel resection. She is overall doing well her postoperative ileus is resolved. -regular diet -DC IV fluids -out of bed ambulate -SCDs and subcutaneous heparin for VTE prophylaxis -anticipate discharge home tomorrow Quality VTE Deep Vein Thrombosis/Pulmonary Embolism Present on Admission: No
--- NOTE | 2020-05-13 14:43 | PC.NURSE ---
Am shift Pt is up ambulating in [facility]. Diet started after Dr Curtis saw Pt midday, flatus +, denies nausea. IVF infusing. Gen diet for lunch, tolerated well, needs to eat in very small quantities d/t previous weight loss surgery. Enc small frequent snacks. ABD binder in place. Replaced dressing for protection from ABD binder. No pain medication needed this shift. Pt reports ache, but managed with repositioning. SO updated.
--- NOTE | 2020-05-13 16:30 | CM.DANOTE ---
DCP/Assessment: Reviewed chart. Please see previous BALLET DANCER note for history. Patient is 44yr old female admitted to [facility] with stomach pain. Patient is POD #3 from emergent hernia repair. Met with patient explained CM/SW role. Patient alert and oriented at time of visit. Patient reports that she hopes to d/c home tomorrow 05-14-20. Patient's diet advanced today. Patient denies the need for any community resources at time of d/c. Patient is requesting BALLET DANCER check into whether or not her insurance has been notified and if they are requesting information pertaining to this hospitalization. Patient concerned in will not be covered due to pre-existing condition criteria. Patient underwent bariatric surgery 2 yrs ago in [place]. P: CM team to continue to follow. Will attempt to check on insurance/payor prior to patient's discharge. Patient reports that she is I in all ADL's at home. SVETA Flores Discharge Planning/Care Management CM Discharge Assessment Start: 05/13/20 16:27 Freq: Status: Active Protocol: Document 05/13/20 16:27 KJS (Rec: 05/13/20 16:30 KJS [id number]) Discharge Planning Assessment Assigned Is Consultant SVETA Flores Contact Information Bony Castro (partner) [phone] Advance Directives? No History Provided By Patient,Medical Record Has Patient been admitted in last 30 No days? Prior Living Arrangements Apartment/Condo Household Members none Type of transporation used prior to Drives own vehicle admit Independent with ADL's Yes Is patient alert and oriented? Yes Caregiver for Another No Barriers to Discharge No Discharge Plan Home Transportation Arrangement Patient reports that she lives 3 blocks away, anticipate that she will drive herself or partner will orange picker. Whiteboard Updated in Patient Room with Yes name and ext. # of Is Consultant Review Status In Process Next Review Type Continued Stay Review
[2020-05-13] MEDS: OXYCODONE IR 5 MG TABLET PO ×2 (18:34→19:41)
[2020-05-14] VITALS: BP 131/64; PULSE 78; RESP 18; TEMP 36.3; O2SAT 100
[2020-05-14] MEDS: LORazepam 2 MG/ML INJ 1 MG IV ×2 (00:29→08:05)
[2020-05-14] MEDS: OXYCODONE IR 5 MG TABLET 10 MG PO ×3 (00:30→12:46)
[2020-05-14] MEDS: BECLOMETHASONE 40 MCG INH 10.6 GM 2 PUFF INH (07:05)
[2020-05-14 07:09] VITALS: PULSE 75; RESP 16; O2SAT 97
[2020-05-14 08:00] VITALS: BP 132/67; PULSE 80; RESP 16; TEMP 36.8; O2SAT 98
[2020-05-14] MEDS: HEPARIN 5,000 UNIT/ML VIAL 5000 UNIT SUBCUT (08:04)
[2020-05-14] MEDS: PANTOPRAZOLE 40 MG VIAL 20 MG IV (08:04)
[2020-05-14] MEDS: BUSPIRONE 5 MG TABLET 10 MG PO (08:04)
[2020-05-14 08:40] LABS: Add Manual Diff / Slide Review NO; Basophils Absolute Auto 0 /uL (0-100); Basophils Percent Auto 0.4 % (0-2); Eosinophils Absolute Auto 500 /uL (0-450); Eosinophils Percent Auto 8.3 % (2-4); Hematocrit 29.3 % (36-46); Hemoglobin 10.2 g/dL (12.0-16.0); Lymphocytes Absolute Auto 800 /uL (1100-4500); Lymphocytes Percent Auto 13.7 % (25-40); Mean Corpuscular HGB Conc 34.7 % (30-36); Mean Corpuscular Hemoglobin 36.1 PG (26-34); Monocytes Absolute Auto 400 /uL (0-900); Neutrophils Absolute Auto 4100 /uL (1500-7000); Neutrophils Percent Auto 70.6 % (50-75); Platelet Count 304 X10^3/uL (150-400); Red Blood Cell Count 2.82 X10^6/uL (4.0-5.2); Red Cell Distribution Width 12.2 % (11.6-14.8); White Blood Cell Count 5.8 X10^3/uL (4.5-11.0)
[2020-05-14 08:46] LABS: BUN Creatinine Ratio 11.4 (6-22); Blood Urea Nitrogen 5 mg/dL (7-17); Calcium 8.4 mg/dL (8.4-10.2); Carbon Dioxide 24 mmol/L (22-32); Chloride 102 mmol/L (98-107); Estimated Glomerular Filt Rate > 60.0 mL/min (>60); Glucose 76 mg/dL (70-100); HEMOLYSIS < 15 (0-50); Magnesium 1.6 mg/dL (1.6-2.3); Phosphorous 4.5 mg/dL (2.5-4.5); Potassium 3.3 mmol/L (3.4-5.1); Sodium 134 mmol/L (137-145)
[2020-05-14] MEDS: BISACODYL 10 MG SUPP PR (11:26)
--- NOTE | 2020-05-14 11:59 | P.DS_ITS ---
History of Present Illness History of Present Illness Chief complaint: severe stomach pain since yesterday Narrative: 44-year-old woman with a history of Agnieszka-en-Y gastric bypass presented with severe abdominal pain. CT abdomen pelvis demonstrated an internal hernia. Discharge Providers Provider Date of admission: 05/10/20 05:22 Discharge Date: 05/14/20 Consults: 05/10/20 04:55 Consult to General Surgery Stat Comment: Consulting Provider: Sveta Troncoso Reason for consultation: internal hernia Has provider been notified: Yes 05/12/20 15:24 Consult to Physical Therapy Evaluate & Treat Comment: Physician Instructions: Evaluate and Treat Discharge provider: Inocente Curtis MD Summary Hospital Course Discharge Diagnosis: Internal hernia Hospital Course: Patient underwent diagnostic laparoscopy 05/10 which demonst rated an internal hernia which was not entirely reducible laparoscopically. The operation was converted to open the hernia was entirely reduced and the intestine was viable. The mesenteric defect was closed. Postoperatively the patient had an ileus and their diet was gradually advanced as tolerated. The remainer of their hospialization was unremarkable. On the date of discharge patient is feeling well she is tolerating a regular diet without nausea or vomiting passing flatus. Status at Discharge Cognitive/behavioral status at discharge: oriented Functional status at discharge: independent ambulation Time Spent with Patient Time spent: Greater than 30 minutes Exam Vital Signs (past 8 hours): - 05/14/20 07:09 05/14/20 08:00 Temperature 98.3 F Pulse Rate 75 80 Respiratory Rate 16 16 Blood Pressure 132/67 Pulse Oximetry 97 98 Oxygen Delivery Method Room Air Oxygen Flow Rate 0 Narrative Exam Narrative: General adult female alert oriented no acute distress Abdomen soft appropriately tender to palpation midline incision clean dry intact with osmany in place. Extremities warm well perfused Objective Labs Result Diagrams: 05/14/20 08:25 05/14/20 08:25 Labs: Laboratory Results - last 24 hr 05/14/20 05/14/20 08:25 08:25 WBC 5.8 RBC 2.82 L Hgb 10.2 L Hct 29.3 L MCV 104.0 H MCH 36.1 H MCHC 34.7 RDW 12.2 Plt Count 304 Neut % (Auto) 70.6 Lymph % (Auto) 13.7 L [place] % (Auto) 7.0 Eos % (Auto) 8.3 H Baso % (Auto) 0.4 Neut # (Auto) 4100 Lymph # (Auto) 800 L [place] # (Auto) 400 Eos # (Auto) 500 H Baso # (Auto) 0 Sodium 134 L Potassium 3.3 L Chloride 102 Carbon Dioxide 24 BUN 5 L Creatinine 0.44 L Estimated GFR > 60.0 BUN/Creatinine Ratio 11.4 Glucose 76 Calcium 8.4 Phosphorus 4.5 Magnesium 1.6 Discharge Plan Discharge Plan Patient Disposition: Home Discharge orders & Medications Prescriptions: New oxycodone 5 mg tablet 5 mg PO Q6H PRN (Reason: pain) Qty: 30 RF: 0 docusate sodium [Colace] 100 mg capsule 100 mg PO BID Qty: 30 RF: 0 Continued omeprazole 40 mg capsule,delayed release(DR/EC) 40 mg PO DAILY Qty: 20 RF: 0 sucralfate [Carafate] 100 mg/mL suspension 10 ml PO QACHS 10 Days Qty: 400 RF: 0 ondansetron 4 mg tablet,disintegrating 4 mg PO Q6H PRN (Reason: nausea and vomiting) Qty: 20 RF: 0 buspirone 10 mg Tablet 10 mg PO DAILY RF: 0 Qvar RediHaler 40 mcg/actuation Hfa Aerosol Breath Activated 2 inh INHALATION BID RF: 0 Follow up/Referrals: Sveta Troncoso MD [Physician] - Diet/Activity/Treatments Diet: Regular Activity: No lifting >20 lbs x 6 weeks. Walking only for exercise for 6 weeks[address] while taking narcotics. Skin/Wound/Dressing Care Report to your healthcare provider any signs of infection, such as:: chills, fever, increased pain and unusual drainage Visit Report/Discharge Packet Visit Report Forms: Patient Portal/API, Stroke Signs & Symptoms Quality VTE Deep Vein Thrombosis/Pulmonary Embolism Present on Admission: No
== END 2020-05-14 14:35 | disposition home or self-care (01) | DRG 336 ==
LOC: ED 04:19 → AC 05:26 → ICU 06:58 → AC 10:26 → ICU 10:26
PROVIDERS: Surgery; Admitting Provider Surgery; Emergency Provider Emergency Medicine; Referring Provider Emergency Medicine; Visit Provider Surgery
PROC: 0DQV0ZZ Repair Mesentery, Open Approach (ICD-10-PCS; CPT 49320; principal; 2020-05-10 05:00)
DX: K46.0 Unspecified abdominal hernia with obstruction, without gangrene (principal); K56.7 Ileus, unspecified; I89.8 Other specified noninfective disorders of lymphatic vessels and lymph nodes; Z98.84 Bariatric surgery status; Z87.891 Personal history of nicotine dependence; Z11.59 Encounter for screening for other viral diseases; Z53.31 Laparoscopic surgical procedure converted to open procedure
CPT/HCPCS: 36415; 49560; 74177; 80048; 80053; 81003; 81015; 81025; 83605; 83690; 83735; 84100; 84145; 85025; 87086; 87635; 87797; 93005; 94640; 96361; 96374; 96375; 96376; 97116; 97161; 97530; 99222; 99284; C9113; C9290; J0131; J0330; J0690; J1100; J1170; J1644; J2060; J2405; J2704; J3010; J3480; Q9967